=== PATIENT | female | born 1970 | race Caucasian/White ===

== ENCOUNTER 2017-03-03 10:16 | Inpatient (IN) | payer MEDICAID ==
--- NOTE | 2017-03-03 10:53 | ED Physician Documentation ---
PD HPI FOCAL NEURO - Stated complaint Stated Complaint: FACIAL NUMBNESS/FATIGUE - Chief complaint Chief Complaint: Neuro - History obtained from History obtained from: Patient - History of Present Illness Timing - onset: How many days ago (3) Timing - duration: Days (3) Timing - details: Still present Severity of deficit: Moderate Weakness: Face, Hand, Leg, Right Numbness: Face, Hand, Leg, Right Associated symptoms: No: Headache, Nausea / vomiting, Fall, Head injury, Chest pain, Fever Contributing factors: positive: Other (uncontrolled diabetes) Baseline status: positive: A&OX3, ambulatory, indep Similar symptoms before: Has not had sx before - Additional information Additional information: The patient is a 46-year-old female with a history of diabetes, who presents with right sided neurologic deficits of 3 days duration. She has felt fatigued , and has found herself having to hold on while walking because of weakness in her right lower extremity. She has felt decreased sensation on the right side of her face, and has been having difficulty holding onto objects with her right hand. She denies any traumatic injury, fever, or headache. She denies history of similar symptoms in the past. She has not been compliant with her insulin, after having been diagnosed with diabetes about 5 years ago. On further review of systems she denies chest pain, cough, shortness of breath. She denies abdominal pain, nausea or vomiting. She does report dysuria and urgency of urination. Review of Systems Constitutional: reports: Fatigue. denies: Fever Eyes: denies: Decreased vision Ears: denies: Tinnitus/ringing Nose: denies: Congestion Throat: denies: Sore throat Cardiac: denies: Chest pain / pressure, Palpitations Respiratory: denies: Dyspnea, Cough GI: denies: Abdominal Pain, Nausea, Vomiting : reports: Dysuria, Frequency Skin: denies: Rash Musculoskeletal: denies: Neck pain, Back pain, Extremity pain Neurologic: reports: Focal weakness, Numbness. denies: Altered mental status, Headache Endocrine: reports: Polyuria PD PAST MEDICAL HISTORY - Past Medical History Past Medical History: Yes Endocrine/Autoimmune: Type 2 diabetes - Allergies Allergies/Adverse Reactions: Allergies Allergy/AdvReac Type Severity Reaction Status Date / Time No Known Drug Allergies Allergy Verified 03/03/17 10:29 - Social History Does the pt smoke?: Yes Smoking Status: Current every day smoker Does the pt drink ETOH?: Yes PD ED PE NORMAL - Vitals Vital signs reviewed: Yes (Hypertensive and tachycardic.) - General General: Alert and oriented X 3, Well developed/nourished - HEENT HEENT: Atraumatic, PERRL, EOMI, Moist mucous membranes, Pharynx benign - Neck Neck: Supple, no meningeal sign, No adenopathy, No JVD - Cardiac Cardiac: No murmur, Other (Rapid rate, regular rhythm.) - Respiratory Respiratory: No respiratory distress, Clear bilaterally - Abdomen Abdomen: Soft, Non tender - Back Back: No CVA TTP - Derm Derm: No rash - Extremities Extremities: No edema, No calf tenderness / cord - Neuro Neuro: Alert and oriented X 3, Normal speech, Other (Decreased light touch sensation on the right face, upper extremity, and lower extremity. There is sparing of the forehead. Decreased strength involving the right upper and lower extremities. No pronator drift.) Eye Opening: Spontaneous Motor: Obeys Commands Verbal: Oriented GCS Score: 15 NIHSS - Time Time: 10:45 - Level of Consciousness Level of consciousness: (0) Alert, Keenly responsive LOC Questions: (0) Answers both Q's correct LOC Commands: (0) Performs both correctly - Gaze Best Gaze: (0) Normal - Visual Visual: (0) No loss - Facial Palsy Facial Palsy: (1) Minor paralysis - Motor Arms (both separate) Motor Arm (right): (0) No drift Motor Arm (left): (0) No drift - Motor Legs (both separate) Motor Leg (right): (0) No drift Motor Leg (left): (0) No drift - Limb Ataxia Limb Ataxia: (0) Absent - Sensory Sensory: (1) Qzhg-am-qqraeobw loss - Best Language Best Language: (0) No aphasia - Dysarthria Dysarthria: (0) Normal - Extinction and Inattention (formally neg Extinction and inattention: (0) No abnormality - Total Score/Results Total Score/Result: 2 Results - Vitals Vitals: Vital Signs - 24 hr 03/03/17 03/03/17 10:23 10:30 Temperature 36.3 C L Heart Rate 109 H 110 H Respiratory 16 18 Rate Blood Pressure 184/101 H 165/103 H O2 Saturation 99 100 Oxygen O2 Source Room air - EKG (time done) 10:42 Rate: Rate (enter#) (103) Rhythm: Sinus tachycardia [place]: Normal Intervals: Normal MA QRS: Normal Ischemia: Normal ST segments Computer interpretation: Agree with computer - Labs Labs: Laboratory Tests 03/03/17 03/03/17 03/03/17 10:26 10:30 10:30 WBC 9.7 RBC 5.69 H Hgb 16.4 H Hct 48.9 H MCV 85.9 MCH 28.7 MCHC 33.4 RDW 13.9 Plt Count 262 MPV 9.5 Neut # 6.4 Lymph # 2.6 [place] # 0.6 Eos # 0.1 Baso # 0.0 Absolute Nucleated RBC 0.01 Nucleated RBC % 0.1 PT 9.6 L INR 0.8 Sodium Potassium Chloride Carbon Dioxide Anion Gap BUN Creatinine Estimated GFR (MDRD) Glucose POC Whole Bld Glucose 443 H Glycated Hemoglobin Estim Average Glucose Calcium Magnesium Total Bilirubin AST ALT Alkaline Phosphatase Total Protein Albumin Globulin Albumin/Globulin Ratio Lipase HCG, Quant 03/03/17 03/03/17 03/03/17 10:30 10:30 10:30 WBC RBC Hgb Hct MCV MCH MCHC RDW Plt Count MPV Neut # Lymph # [place] # Eos # Baso # Absolute Nucleated RBC Nucleated RBC % PT INR Sodium 132 L Potassium 3.9 Chloride 98 L Carbon Dioxide 24 Anion Gap 10.0 BUN 12 Creatinine 0.8 Estimated GFR (MDRD) 77 L Glucose 427 H POC Whole Bld Glucose Glycated Hemoglobin 12.6 H Estim Average Glucose 315 H Calcium 9.2 Magnesium Total Bilirubin 0.5 AST 21 ALT 15 Alkaline Phosphatase 129 H Total Protein 8.1 Albumin 3.9 Globulin 4.2 Albumin/Globulin Ratio 0.9 L Lipase 78 H HCG, Quant < 0.60 03/03/17 10:30 WBC RBC Hgb Hct MCV MCH MCHC RDW Plt Count MPV Neut # Lymph # [place] # Eos # Baso # Absolute Nucleated RBC Nucleated RBC % PT INR Sodium Potassium Chloride Carbon Dioxide Anion Gap BUN Creatinine Estimated GFR (MDRD) Glucose POC Whole Bld Glucose Glycated Hemoglobin Estim Average Glucose Calcium Magnesium 2.2 Total Bilirubin AST ALT Alkaline Phosphatase Total Protein Albumin Globulin Albumin/Globulin Ratio Lipase HCG, Quant - Rads (name of study) Head CT w/o Radiology: Prelim report reviewed, EMP read contemporaneously, See rad report ( There is an area of subtle asymmetry of hypodensity involving the posterior limb of the left internal capsule which may reflect a small area of subacute cerebral infarction. This can be further evaluated with MRI of the brain without contrast as deemed clinically appropriate. There is no evidence of overt hemorrhagic transformation within this area of suspected subacute cerebral infarction. Other etiologies which can produce a similar appearance would include an area of chronic small vessel ischemia. Recommend correlation with clinical symptoms.) PD MEDICAL DECISION MAKING - ED course Complexity details: reviewed results, re-evaluated patient, considered differential, d/w patient, d/w family, d/w reporting consultant ED course: The patient's presentation is most consistent with a subacute lacunar infarct, with right sided neurologic deficits. CT scan of the brain does not reveal any evidence of intracranial hemorrhage. She has a history of noncompliance with her diabetes, and has not been taking insulin for more than 1 year, and was sporadic with her insulin when she did take it. She is hyperglycemic today with a blood sugar of 447, without evidence of ketoacidosis. Treatment in the emergency department included administration of normal saline 1 L IV, insulin 10 units of regular subcutaneously, and 4 baby aspirin orally. I discussed her condition with the neurologist at [facility], and he recommends that the patient can be admitted to [facility] for further evaluation and treatment by the hospitalist here. I discussed her condition with Dr. Park, who will admit her for further evaluation and treatment. Departure - Departure Disposition: 66 [facility] DC/Xfer Clinical Impression: Cerebrovascular accident (CVA) Qualifiers: CVA mechanism: unspecified Qualified Code(s): I63.9 - Cerebral infarction, unspecified Diabetes mellitus with hyperglycemia Qualifiers: Diabetes mellitus type: type 2 Diabetes mellitus terminal manager insulin use: without senior care use Qualified Code(s): E11.65 - Type 2 diabetes mellitus with hyperglycemia Condition: Stable Discharge Date/Time: 03/03/17 12:27
[2017-03-03 10:56] LABS: BASOPHILS % (AUTO) 0.4 %; EOSINOPHILS # (AUTO) 0.1 10^3/uL (0.0-0.7); HGB - HEMOGLOBIN 16.4 g/dL (12.0-16.0); LYMPHOCYTES # (AUTO) 2.6 10^3/uL (1.5-3.5); LYMPHOCYTES % (AUTO) 26.8 %; MEAN CORPUSCULAR HEMOGLOBIN 28.7 pg (27.0-31.0); MEAN CORPUSCULAR HGB CONC 33.4 g/dL (32.0-36.0); MEAN CORPUSCULAR VOLUME 85.9 fL (81.0-99.0); MEAN PLATELET VOLUME 9.5 fL (7.9-10.8); MONOCYTES # (AUTO) 0.6 10^3/uL (0.0-1.0); MONOCYTES % (AUTO) 5.7 %; NEUTROPHILS # (AUTO) 6.4 10^3/uL (1.5-6.6); NEUTROPHILS % (AUTO) 66.1 %; PLT - PLATELET COUNT 262 10^3/uL (130-450); RED BLOOD COUNT 5.69 10^6/uL (4.20-5.40); RED CELL DISTRIBUTION WIDTH 13.9 % (12.0-15.0); WHITE BLOOD COUNT 9.7 x10^3/uL (4.8-10.8)
--- NOTE | 2017-03-03 11:11 | CT Preliminary Report ---
Exam: CT HEAD W/O Impression: 1. There is an area of subtle asymmetry of hypodensity involving the posterior limb of the left inter nal capsule which may reflect a small area of subacute cerebral infarction. This can be further evalu ated with MRI of the brain without contrast as deemed clinically appropriate. There is no evidence of overt hemorrhagic transformation within this area of suspected subacute cerebral infarction. Other e tiologies which can produce a similar appearance would include an area of chronic small vessel ischem ia. Recommend correlation with clinical symptoms. The critical result notification system was initiated by Dr. Curt Patino at 11:07 hrs on 03/03/17. The above critical findings were discussed with Dr. Ty Nichols by Dr. Curt Patino at 11:10 hrs on 03/03/17. SITE ID: [id number]
[2017-03-03] MEDS ORDERED: ASPIRIN CHEW 81 MG TABLET PO STA (11:14)
[2017-03-03 11:16] LABS: ALBUMIN 3.9 g/dL (3.2-5.5); ALBUMIN/GLOBULIN RATIO 0.9 (1.0-2.2); BILIRUBIN,TOTAL 0.5 mg/dL (0.2-1.0); CALCIUM 9.2 mg/dL (8.5-10.3); CREATININE 0.8 mg/dL (0.4-1.0); TOTAL PROTEIN 8.1 g/dL (6.7-8.2)
[2017-03-03 11:20] LABS: INR 0.8 (0.8-1.2); PT - PROTHROMBIN TIME 9.6 secs (9.9-12.6)
[2017-03-03] MEDS ORDERED: INSULIN REGULAR HUMAN 100 UNIT/1 ML 10 ML MDV SUBQ STA (11:26)
[2017-03-03] MEDS ORDERED: SODIUM CHLORIDE 0.9% 1,000 ML IV ONE (11:26)
--- NOTE | 2017-03-03 11:38 | CT Report ---
EXAM: CT HEAD EXAM DATE: 03/03/2017 10:58 AM. CLINICAL HISTORY: Right-sided neuro deficits past three days. COMPARISON: None. TECHNIQUE: Multiaxial CT images were obtained from the foramen magnum to the vertex. Reformats: Coron al. IV contrast: None. In accordance with CT protocol optimization, one or more of the following dose reduction techniques w ere utilized for this exam: automated exposure control, adjustment of mA and/or KV based on patient s ize, or use of iterative reconstructive technique. FINDINGS: There is an old fracture of the left orbital floor. Recommend correlation with history. The imaged po rtions of the paranasal sinuses are normally aerated. The bilateral mastoid air cells are normally ae rated. There is no acute fracture of the calvaria. The imaged portions of the orbits are normal in appearance. There is an area of subtle asymmetric hypodensity involving the posterior limb of the left internal c apsule which may reflect an area of subacute cerebral infarction. This may potentially produce right- sided deficits. Further characterization can be obtained with MRI of the brain without contrast as de emed clinically appropriate. There is no evidence of overt hemorrhagic transformation within the susp ected area of cerebral infarction. Cerebral volume and ventricular size are normal. IMPRESSION: 1. There is an area of subtle asymmetry of hypodensity involving the posterior limb of the left inter nal capsule which may reflect a small area of subacute cerebral infarction. This can be further evalu ated with MRI of the brain without contrast as deemed clinically appropriate. There is no evidence of overt hemorrhagic transformation within this area of suspected subacute cerebral infarction. Other e tiologies which can produce a similar appearance would include an area of chronic small vessel ischem ia. Recommend correlation with clinical symptoms. The critical result notification system was initiated by Dr. Curt Patino at 11:07 hrs on 03/03/17. The above critical findings were discussed with Dr. Ty Nichols by Dr. Curt Patino at 11:10 hrs on 03/03/17. Referring Provider Line: [phone] SITE ID: [id number]
[2017-03-03] MEDS ORDERED: SODIUM CHLORIDE FLUSH 0.9% 10 ML SYRINGE IVP PRN (11:48)
[2017-03-03] MEDS ORDERED: PROCHLORPERAZINE 10 MG/2 ML VIAL IVP PRN (11:48)
[2017-03-03 12:37] LABS: HB2 TOTAL 17.9 g/dL; HEMOGLOBIN A1C 2.05 g/dL; HEMOGLOBIN A1C % 12.6 % (4.6-6.2)
[2017-03-03] MEDS: NS W/20 MEQ KCL 1,000 ML IV SCH (13:43)
[2017-03-03] MEDS: SODIUM CHLORIDE FLUSH 0.9% 10 ML SYRINGE IVP SCH ×2 (13:44→20:07)
[2017-03-03 15:33] LABS: BILIRUBIN,URINE NEGATIVE (NEGATIVE); GLUCOSE, URINE (UA) >=1000 mg/dL (NEGATIVE); KETONES,URINE (UA) NEGATIVE (NEGATIVE); LEUKOCYTE ESTERASE, URINE NEGATIVE (NEGATIVE); MUDS CUTOFF CONCENTRATIONS CUTOFF CONC BELOW:; NITRITE,URINE NEGATIVE (NEGATIVE); OCCULT BLOOD,URINE NEGATIVE (NEGATIVE); PROTEIN,URINE NEGATIVE (NEGATIVE); UROBILINOGEN,URINE 0.2 (NORMAL) E.U./dL (NORMAL)
[2017-03-03 15:35] LABS: CLARITY,URINE CLEAR (CLEAR)
[2017-03-03 15:46] LABS: AMPHETAMINE SCREEN,URINE POSITIVE (NEGATIVE); BENZODIAZEPINES SCREEN, URINE NEGATIVE (NEGATIVE); COCAINE SCREEN URINE NEGATIVE (NEGATIVE); METHADONE SCREEN, URINE NEGATIVE (NEGATIVE); METHAMPHETAMINES SCREEN, URINE POSITIVE (NEGATIVE); OPIATE SCREEN, URINE NEGATIVE (NEGATIVE); OXYCODONE SCREEN, URINE NEGATIVE (NEGATIVE); PROPOXYPHENE SCREEN, URINE NEGATIVE (NEGATIVE); TRICYCLIC ANTIDEPRESSANT,URINE NEGATIVE (NEGATIVE)
--- NOTE | 2017-03-03 16:52 | Ultrasound Preliminary Report ---
Exam: US CAROTID DOPPLER COMPLETE IMPRESSION: No hemodynamically significant stenoses. Validated velocity measurements with angiographic measurements and velocity criteria are extrapolated from diameter data as defined by the Society of Radiologists in Ultrasound Consensus Conference Radi ology 2003; 229;340-346. RADIA SITE ID: [id number]
[2017-03-03] MEDS ORDERED: INSULIN ASPART 300 UNIT/3 ML PEN SUBQ SCH (17:00)
--- NOTE | 2017-03-03 17:01 | Ultrasound Report ---
EXAM: CAROTID DOPPLER ULTRASOUND EXAM DATE: 03/03/2017 03:40 PM. CLINICAL HISTORY: Right side neurologic deficit for 3 days. Right lower extremity weakness. COMPARISON: None. TECHNIQUE: Real-time sonographic vascular imaging was performed by the roll cutter through the [employer] arterial system with a linear transducer utilizing color-flow, Doppler flow and spectral analysis. Multiple dealer compliance representative static images were saved for review. FINDINGS: RIGHT: RCCA Prox: PSV 74 cm/sec. RCCA Dist: PSV 65 cm/sec, EDV 20 cm/sec. RECA: PSV 129 cm/sec. R Bulb: PSV 57 cm/sec, EDV 21 cm/sec, ICA/CCA ratio 0.88. CASE Prox: PSV 51 cm/sec, EDV 20 cm/sec, ICA/CCA ratio 0.78. CASE Mid: PSV 109 cm/sec, EDV 46 cm/sec, ICA/CCA ratio 1.68. CASE Dist: PSV 79 cm/sec, EDV 33 cm/sec, ICA/CCA ratio 1.22. RVA: PSV 31 cm/sec. RVA flow direction: Antegrade. LEFT: LCCA Prox: PSV 77 cm/sec. LCCA Dist: PSV 66 cm/sec, EDV 25 cm/sec. LECA: PSV 97 cm/sec. L Bulb: PSV 92 cm/sec, EDV 43 cm/sec, ICA/CCA ratio 1.39. LICA Prox: PSV 89 cm/sec, EDV 32 cm/sec, ICA/CCA ratio 1.35. LICA Mid: PSV 65 cm/sec, EDV 29 cm/sec, ICA/CCA ratio 0.98 LICA Dist: PSV 32 cm/sec, EDV 15 cm/sec, ICA/CCA ratio 0.48. LVA: PSV 38 cm/sec. LVA flow direction: Antegrade. Other: Mild soft plaquing at the bifurcations. IMPRESSION: No hemodynamically significant stenoses. Validated velocity measurements with angiographic measurements and velocity criteria are extrapolated from diameter data as defined by the Society of Radiologists in Ultrasound Consensus Conference Radi ology 2003; 229;340-346. RADIA Referring Provider Line: [phone] SITE ID: [id number]
[2017-03-03] MEDS: ACETAMINOPHEN 325 MG TABLET PO PRN (17:30)
[2017-03-03] MEDS: NICOTINE 14 MG PATCH TOP SCH (17:30)
[2017-03-03] MEDS ORDERED: ATORVASTATIN 40 MG TABLET PO SCH (21:00)
[2017-03-03] MEDS: INSULIN ASPART 300 UNIT/3 ML PEN SUBQ SCH (21:08)
[2017-03-03] MEDS ORDERED: GABAPENTIN 100 MG CAPSULE PO SCH (22:00)
[2017-03-04 00:34] LABS: BUN - BLOOD UREA NITROGEN 10 mg/dL (6-20); CALCIUM 8.5 mg/dL (8.5-10.3); CARBON DIOXIDE - CO2 23 mmol/L (21-32); CHLORIDE 102 mmol/L (101-111); CHOL/HDL RATIO 3.2 (<4.4); CHOLESTEROL 136 mg/dL; CREATININE 0.5 mg/dL (0.4-1.0); GFR - MDRD 132 (>89); GLUCOSE 259 mg/dL (70-100); HDL CHOLESTEROL 42 mg/dL; LDL CHOLESTEROL,CALCULATED 51 mg/dL; LDL/HDL RATIO 1.2 (<4.4); SODIUM 133 mmol/L (135-145); VLDL CHOLESTEROL 43 mg/dL
[2017-03-04] MEDS: NS W/20 MEQ KCL 1,000 ML IV SCH ×2 (01:09→15:48)
[2017-03-04] MEDS: SODIUM CHLORIDE FLUSH 0.9% 10 ML SYRINGE IVP SCH ×2 (06:46→13:01)
[2017-03-04] MEDS ORDERED: ASPIRIN 325 MG TABLET PO SCH (08:00)
[2017-03-04] MEDS: INSULIN ASPART 300 UNIT/3 ML PEN SUBQ SCH ×2 (08:09→12:16)
[2017-03-04] MEDS: ACETAMINOPHEN 325 MG TABLET PO PRN (08:20)
--- NOTE | 2017-03-04 08:42 | HISTORY & PHYSICAL EXAMINATION ---
DATE OF SERVICE: 03/03/2017 Physician: Melinda Mayer MD HISTORY OF PRESENT ILLNESS: This is a 46-year-old white female with a history of diabetes, diagnosed 5 years ago. She admits to being on metformin and insulin minimally over those 5 years. Patient has no other past medical history and is taking no medications. Patient presents with a 3-day history of right facial numbness, right arm clumsiness and dropping things, and right leg weakness and abnormal gait. After approximately 2 days of this continuous symptom, she herself thought that maybe she was having a stroke and eventually came to the emergency room and has had workup begun and is in fact being diagnosed with a completed subacute stroke. PAST MEDICAL HISTORY: Diabetes, noncompliant with oral or insulin management for diabetes. ALLERGIES: NONE. MEDICATIONS AT HOME: None. FAMILY HISTORY: Cardiac disease on both sides of the family and no other family history. SOCIAL HISTORY: Patient smokes 1/2 to 1 pack a day, drinks alcohol socially; she states she was a heavy alcoholic until 16 years ago when she had her first child. Patient states she has some marijuana smoking use, nightly before bed, and denies any other drug use (despite having positive urine tox screen). REVIEW OF SYSTEMS: The patient reports that for about a year, she has pain and numbness in the plantar aspect of both feet, mostly in the heels ,which subsides after she arises in the morning and walks around. It is mostly a problem at night. She has never taken medications for this. A comprehensive review of systems was done, and only the pertinent positives are as above in the HPI and here. PHYSICAL EXAMINATION GENERAL: A white female in no distress, supine in bed. VITAL SIGNS: Blood pressure 150/90, heart rate 80, in sinus rhythm, afebrile. HEENT: Unremarkable with moist oral mucosa. NECK: No JVD. No carotid bruits are heard. No thyromegaly. No lymphadenopathy. CHEST: Clear. HEART: Heart sounds normal. No audible murmur. No heave or gallop. ABDOMEN: Soft. Positive bowel sounds. EXTREMITIES: No clubbing, cyanosis, or edema. NEUROLOGIC: Exam showed abnormal sensation to light touch of the right cheek area compared to the left, 4+ strength of the right hand international flight attendant compared to the left, but equal motor strength of both lower extremities. LABORATORY/DATA Sodium 132, potassium 3.9, BUN 12, creatinine 0.8. Glucose 427. HbA1c 12.6 giving an estimated average daily glucose of 315, magnesium 2.2, alkaline phosphatase 129, normal AST and ALT. One troponin was less than 0.04. Lipase 78. No amylase was done. HCG negative. INR normal. White blood count and differential normal. Hemoglobin 16.4 with an MCV of 85, platelet count normal. Urine showed pH of 1.02, high glucose, negative leukocyte esterase, negative ketones. The blood toxicology was positive for amphetamines and methamphetamine. EKG normal sinus rhythm, within normal limits. There was no chest x-ray done. Head CT showed a subacute infarct of the left internal capsule. IMPRESSION/DIAGNOSES 1. Subacute stroke with CT abnormality that is consistent with her neurologic deficits. 2. Diabetes with poor control, noncompliance. 3. Possible methamphetamine abuse. 4. Possible hypertension, not treated. 5. Current smoker. PLAN 1. Admit the patient to Telemetry and rule out atrial fibrillation as a source of the stroke. Obtain an echo to rule out a cardiac embolus. Obtain a carotid Doppler to evaluate for stenoses. Repeat brain imaging with a brain MRI, but also brain and neck MRA for closer evaluation of vasculature. 2. Start the patient on daily aspirin. Obtain a lipid panel and start the patient on a statin medication. 3. Begin sliding scale insulin coverage and a diabetic diet. The patient needs diabetic teaching. She needs followup for diabetes management, which she now agrees to do. 4. Begin transderm Nicoderm patch for nicotine urges. Deep venous thrombosis prophylaxis: SCDs. CODE STATUS: FULL CODE. ATTESTATION: It is expected that the patient will be discharged or transferred within 96 hours: Yes. TIME REQUIRED FOR COMPLETING THIS ENTIRE ADMISSION: 45 minutes. TD: 03/03/2017 20:25 ROBYN
[2017-03-04] MEDS ORDERED: POLYETHYLENE GLYCOL 3350 17 GM PACKET PO SCH (09:00)
[2017-03-04] MEDS ORDERED: ENOXAPARIN 40 MG/0.4 ML SYRINGE SUBQ SCH (09:00)
[2017-03-04] MEDS ORDERED: FAMOTIDINE 20 MG TABLET PO SCH (09:00)
[2017-03-04] MEDS ORDERED: GADOBUTROL 10 MMOL/10 ML VIAL ONE (09:11)
[2017-03-04] MEDS ORDERED: GADOBUTROL 10 MMOL/10 ML VIAL IVP ONE (11:55)
--- NOTE | 2017-03-04 12:43 | MRI Preliminary Report ---
Exam: MRI ANGIO NECK W/WO (MRA) IMPRESSION: 1. Negative neck MRA. No hemodynamically significant stenoses. 2. Mild, less than 50%, stenosis is seen at the origin of the left ICA. RADIA SITE ID: [id number]
--- NOTE | 2017-03-04 12:43 | MRI Preliminary Report ---
Exam: MRI ANGIO BRAIN W/O (MRA) IMPRESSION: 1.Moderate, 50%, stenosis noted at the junction of the cavernous and supracavernous ICA bilaterally. 2. Otherwise unremarkable MRA of the intracranial circulation. No aneurysm. RADIA SITE ID: [id number]
--- NOTE | 2017-03-04 12:43 | MRI Preliminary Report ---
Exam: MRI BRAIN W/O IMPRESSION: 1.Acute infarct in the lateral left thalamus and junction with the posterior limb of the internal cap rubi. Imaging is consistent with 1-7 days in age. No associated hemorrhage. 2. Punctate focus of subcortical white matter T2 and FLAIR bright signal in the right posterior front al operculum. This is nonspecific. This can be seen in patients with migraine headaches or secondary to small vessel ischemic change. RADIA SITE ID: [id number]
--- NOTE | 2017-03-04 13:07 | MRI Report ---
EXAM MRA BRAIN EXAM DATE: 03/04/2017 11:26 AM. CLINICAL HISTORY: CVA. Right-sided tingling. COMPARISON: MRI of the brain 03/04/2017. MRA of the neck 03/04/2017. CT scan of the head 03/03/2017. TECHNIQUE: Multiplanar, multisequence MRA sequences of the brain were performed. Other: None. Post-pr ocessing: Multiplanar 3D MIP reconstructions. IV Contrast: None. FINDINGS: RIGHT Internal Carotid (ICA): Moderate, 50%, stenosis is seen at the junction of the cavernous and supracav ernous ICA. Otherwise, intracranial ICA is unremarkable. No aneurysm. Middle Cerebral (MCA): No aneurysm, stenosis or anomaly. Anterior Cerebral (AANIS): No aneurysm, stenosis or anomaly. Posterior Cerebral (HOME HEALTH RN): No aneurysm, stenosis or anomaly. Posterior Communicating (P-COM): Not visualized. Vertebral: No aneurysm, stenosis or anomaly in the visualized upper vertebral artery. LEFT Internal Carotid (ICA): Moderate, 50%, stenosis is seen at the junction of the cavernous and supracav ernous ICA. Otherwise, intracranial ICA is unremarkable. No aneurysm. Middle Cerebral (MCA): No aneurysm, stenosis or anomaly. Anterior Cerebral (ANAIS): No aneurysm, stenosis or anomaly. Posterior Cerebral (HOME HEALTH RN): No aneurysm, stenosis or anomaly. Posterior Communicating (P-COM): No aneurysm, stenosis or anomaly. Vertebral: No aneurysm, stenosis or anomaly in the visualized upper vertebral artery. MIDLINE Anterior Communicating (A-COM): No aneurysm, stenosis or anomaly. Small in caliber. Basilar Artery:No aneurysm, stenosis or anomaly. Other: None. IMPRESSION: 1.Moderate, 50%, stenosis noted at the junction of the cavernous and supracavernous ICA bilaterally. 2. Otherwise unremarkable MRA of the intracranial circulation. No aneurysm. RAD[facility] Referring Provider Line: [phone] SITE ID: [id number]
--- NOTE | 2017-03-04 13:08 | MRI Report ---
EXAM: MR ANGIOGRAM NECK EXAM DATE: 03/04/2017 12:10 PM. CLINICAL HISTORY: CVA. Right-sided tingling. COMPARISON: MRI and MRA of the head 03/04/2017. TECHNIQUE: Multiplanar, multisequence MRA sequences of the neck were performed. Other: None. Post-pro cessing: Multiplanar 3D MIP reconstructions. IV Contrast: 9 mL Gadavist. Evaluation of arterial sten osis is based on a NASCET method of measurement. FINDINGS: The visualized aortic arch is unremarkable. Normal three-vessel branching is noted. The great vessels off the arch are patent. RIGHT Common Carotid: Patent. No dissection or significant stenosis. Internal Carotid: Patent. No dissection or significant stenosis. External Carotid: Patent. No dissection or significant stenosis. Vertebral: Patent. No dissection or significant stenosis. LEFT Common Carotid: Patent. No dissection or significant stenosis. Internal Carotid: Patent. No dissection or significant stenosis. Mild, less than 50%, stenosis is see n at the origin of the ICA. External Carotid: Patent. No dissection or significant stenosis. Vertebral: Patent. No dissection or significant stenosis. Intracranial Circulation: No stenoses or aneurysms in the visualized portion of the intracranial vasc ulature. (Please see report of MRA of the brain performed at the same time). Other: The soft tissues, bones, and lung apices are unremarkable. IMPRESSION: 1. Negative neck MRA. No hemodynamically significant stenoses. 2. Mild, less than 50%, stenosis is seen at the origin of the left ICA. RADIA Referring Provider Line: [phone] SITE ID: [id number]
--- NOTE | 2017-03-04 13:08 | MRI Report ---
EXAM: MRI BRAIN WITHOUT CONTRAST EXAM DATE: 03/04/2017 11:57 AM. CLINICAL HISTORY: CVA. Right-sided tingling. COMPARISON: MRA of the head and neck 03/04/2017. CT scan of the head 03/03/2017. TECHNIQUE: Multiplanar, multisequence T1-weighted and fluid-sensitive MR sequences of the brain were performed. Sequences optimized for routine evaluation. Other: None. IV Contrast: None. FINDINGS: Brain Volume: Normal for age. Parenchyma/Dura: An oval 10 x 14 x 5 mm focus of signal abnormality is seen in the left lateral thala mus at the junction with the posterior limb of the internal capsule. This demonstrates restricted dif fusion with decreased T1 and increased T2/FLAIR signal. An oval 3.5 mm focus of subcortical white matter T2 and FLAIR bright signal is seen in the right infe rior perirolandic region. The remainder of crow matter and white matter signal is unremarkable. No in tracranial mass or hemorrhage. Ventricles/Cisterns: No hydrocephalus. No abnormal extra-axial fluid collection or hemorrhage. Orbits: Symmetric and unremarkable. Sella Turcica: The pituitary gland, cavernous sinuses, suprasellar cistern and optic chiasm are unrem arkable. IAC: Symmetric and unremarkable. Vasculature: Normal signal flow void is seen in the major arterial structures at the skull base. Sinuses: No acute appearing sinus disease. Bones: No focal pathologic appearing marrow signal changes. Other: None. IMPRESSION: 1.Acute infarct in the lateral left thalamus and junction with the posterior limb of the internal cap rubi. Imaging is consistent with 1-7 days in age. No associated hemorrhage. 2. Punctate focus of subcortical white matter T2 and FLAIR bright signal in the right posterior front al operculum. This is nonspecific. This can be seen in patients with migraine headaches or secondary to small vessel ischemic change. [facility] Referring Provider Line: [phone] SITE ID: [id number]
[2017-03-04 15:35] VITALS: BP 132/80
[2017-03-04] MEDS: NICOTINE 14 MG PATCH TOP SCH (16:32)
--- NOTE | 2017-03-04 16:35 | Ultrasound Preliminary Report ---
Exam: US ANKLE BRACHIAL INDEX IMPRESSION: Abnormal bilateral ABIs, 0.63 on the right, 0.53 on the left. [facility] SITE ID: [id number]
--- NOTE | 2017-03-04 16:48 | Ultrasound Report ---
EXAM: BILATERAL LOWER EXTREMITY ARTERIAL DOPPLER ULTRASOUND WITH ABIs EXAM DATE: 03/04/2017 04:07 PM. CLINICAL HISTORY: Bilateral foot pain when supine. Diabetic. COMPARISON: None. TECHNIQUE: Real-time sonographic vascular imaging was performed by the concrete building assembler, utilizing color-f low, Doppler flow, and spectral analysis. Multiple inside sales account representative static images were saved for review . FINDINGS: Right Lower Extremity: TRAVEL REGISTERED NURSE PACU: PSV 31 cm/sec, monophasic waveform. DPA: PSV 8 cm/sec, monophasic waveform. Right Systolic Pressures: Brachial artery: 132/80 Posterior tibial artery: 85/57 Ankle/brachial Index: 0.63 Left Lower Extremity: TRAVEL REGISTERED NURSE PACU: PSV 11 cm/sec, monophasic waveform. DPA: PSV 12 cm/sec, monophasic waveform. Left Systolic Pressures: Brachial artery 135/77 Posterior tibial artery: 71/54 Ankle/Brachial Index: 0.53 IMPRESSION: Abnormal bilateral ABIs, 0.63 on the right, 0.53 on the left. [facility] Referring Provider Line: [phone] SITE ID: [id number]
[2017-03-04] MEDS ORDERED: INSULIN ASPART 300 UNIT/3 ML PEN SUBQ SCH (17:00)
--- NOTE | 2017-03-04 18:01 | Discharge Plan ---
Discharge Plan Disposition: Home, Self Care Condition: Stable Prescriptions: Aspirin [Nabeel] 325 mg PO DAILYWM #30 tablet Blood Sugar Diagnostic [Glucometer Strips] 1 each ACHS #100 strip Blood-Glucose Meter [Glucometer] 1 each ACHS #1 each Cilostazol [Pletal] 100 mg PO BID #60 tablet Insulin Aspart [NovoLOG] 3 - 11 unit SUBQ 0800,1200,1700,2100 #1 pen Insulin Glargine [Lantus Solostar] 20 unit SQ BID #1 pen Lancets [Blood Lancets] 1 each ACHS #100 each Nicotine 14 mg Patch [Nicoderm] 1 patch TOP Q24H #21 patch Diet: Diabetic Activity Restrictions: Activity as Tolerated Shower Restrictions: No Driving Restrictions: Yes (rajni Ley cleared to drive by PCP) Weight Bearing: Full Weight Instruction Topics: Stroke Sx, Stroke Taking Meds, Eat Healthy, Blood Sugar Check, Insulin Injected, Insulin Types, Diabetes Healthy Meals, Diabetes Carbs, Diabetes Eating Out, Diabetes Keep Feet Healthy, Peripheral Artery Disease Additional Instructions or Follow Up instructions: Please eat a Diabetic (Carb-controlled) diet Start taking: Long acting Insulin Short acting Insulin, doses based on fingerstick glucose level Aspirin, adult dose, 1 tablet daily for life Pletal tablets Use the Nicoderm Patch to help you permanently STOP smoking See your PCP for follow up regarding Diabetes and Stroke and PVD (Peripheral Vascular Disease) Have your cholesterol checked in 1-2 months by your provider, to determine if any medications beyond glucose medications are needed for you You can have follow-up here at the [facility] if you wish Begin Physical Therapy and Occupational Therapy Rehab post-stroke at the facility of your choice Follow-Up Care: Outpatient Rehab - PT, Outpatient Rehab - OT No Smoking: If you smoke, Please STOP! Call for help. Follow-up with: Cesilia Burns ARNP [Primary Care Provider] -
--- NOTE | 2017-03-30 05:56 | DISCHARGE SUMMARY ---
DATE OF SERVICE: 03/04/2017 Physician: Melinda Mayer MD DATE OF ADMISSION: 03/03/2017 DATE OF DISCHARGE: 03/04/2017 HISTORY OF PRESENT ILLNESS: This is a 46-year-old, white female with a history of diabetes diagnosed 5 years ago and she admits to noncompliance, taking nearly no metformin or insulin over the past 5 years. She is on no medications whatsoever. The patient presented with a 3-day history of right facial numbness, right arm clumsiness, and right leg weakness with abnormal gait and, over the last 2 days, these were continuous symptoms. She presented to the emergency room where CT of the head revealed a subacute stroke. She was placed in observation for further evaluation and to initiate PT, as well as treatment of diabetes. HOSPITAL COURSE AND DISCHARGE DIAGNOSES 1. Subacute stroke/PVD. The patient's arm weakness improved only minimally, her leg complaint and facial numbness persisted. The patient underwent an echocardiogram and this showed normal LV function, EF of 60%, no intracardiac clot, no intracardiac shunt. The patient also had multiple imaging studies to rule out a source of embolism or other atherosclerosis. She had a carotid Doppler that showed no hemodynamically significant stenoses. She had a brain MRA and MRI, and neck MRA. These studies showed moderate 50% stenosis at the junction of the cavernous and super cavernous ICA bilaterally. Otherwise, an unremarkable MRA of the intracranial circulation and no aneurysm. Acute infarct in the lateral left thalamus and junction with the posterior limb of the internal capsule which is consistent with a stroke of 1-7 days in age, and no associated hemorrhage. A punctate focus of subcortical white matter signal was seen , which could be consistent with migraine headaches or small vessel ischemic changes. A mild (less than 50%) stenosis at the origin of the left ICA. Because the patient described pain in the dorsum of her feet when legs are elevated, there was concern for atherosclerotic disease of the legs in a diabetic who had poor glu control, so an ALVERTO was done that showed abnormal bilateral ABIs: 0.63 on the right and 0.53 on the left. The patient was started on aspirin and advised to take this daily for life. She was also put on cilostazol for her peripheral vascular disease. The patient underwent lipid studies that showed a total cholesterol of 136, LDL of 51, triglycerides of 215. She was not started on triglyceride controlling agents yet, as her glucose control would be a first priority, and that control alone may decrease her triglycerides. She was advised to start outpatient rehab with physical therapy and occupational therapy, and a prescription order was provided for her to begin these. 2. Diabetes, poorly controlled. The patient's blood sugars ran in the mid 200 range. Her HbA1c was 12.6, indicating very poor control. The patient was seen by a diabetic electric stove mechanic and had teaching started regarding diet as well as medications, and fingerstick management. She was discharged on new prescriptions for her diabetes and advised to have followup in the diabetic clinic here or with her PCP. 3. Hypertension. The patient's blood pressure on presentation was 151/82. She was advised to have outpatient followup regarding blood pressure management. But on the second day without antihypertensive meds, her blood pressure was in the range of 125/ 86, 118/79. LABS AND IMAGING: Reviewed and summarized above. ALLERGIES: NONE. MEDICATIONS AT DISCHARGE These were all new: 1. Aspirin 325 mg daily. 2. Blood sugar fingerstick lancets. 3. Blood glucose monitoring with a glucometer. 4. Blood sugar fingerstick strips. 5. Pletal (Cilostazol) 100 mg p.o. b.i.d. 6. Aspart insulin pen, using a sliding scale for coverage. 7. Lantus insulin 20 units subcutaneous b.i.d. 8. Nicoderm patch topically daily for a 2-week course. CONDITION AT DISCHARGE: Stable. PHYSICAL EXAMINATION AT DISCHARGE VITAL SIGNS: Blood pressure 132/80, heart rate 74 in sinus rhythm, afebrile, room air saturation 97 percent. HEENT: Unremarkable except for right facial numbness. NECK: Without JVD or carotid bruits. CHEST: Clear. HEART: Sounds normal. ABDOMEN: Soft. Normal bowel sounds, nontender. EXTREMITIES: Without edema. NEUROLOGIC: She had mild weakness of the right arm and the right leg. FOLLOWUP: PCP and recommend outpatient OT and PT, and recommend diabetic clinic here. CODE STATUS: FULL CODE. TIME REQUIRED TO COMPLETE THIS ENTIRE DISCHARGE: 45 minutes. TD: 03/30/2017 06:55 [facility]
== END 2017-03-04 19:06 | disposition home or self-care (01) | DRG 65 ==
LOC: ED 10:16 → MS2 11:48
PROVIDERS: ADMIT Internal Medicine; ATTEND Internal Medicine
DX: I63.50 Cerebral infarction due to unspecified occlusion or stenosis of unspecified cerebral artery (principal); G81.91 Hemiplegia, unspecified affecting right dominant side; R20.0 Anesthesia of skin; R29.702 NIHSS score 2; E11.65 Type 2 diabetes mellitus with hyperglycemia; E11.51 Type 2 diabetes mellitus with diabetic peripheral angiopathy without gangrene; T38.3X6A Underdosing of insulin and oral hypoglycemic [antidiabetic] drugs, initial encounter; I10 Essential (primary) hypertension; F17.210 Nicotine dependence, cigarettes, uncomplicated
CPT/HCPCS: 36415; 70450; 70544; 70549; 70551; 80048; 80053; 80061; 80306; 81001; 81003; 83036; 83690; 83721; 83735; 84484; 84702; 85025; 85610; 87086; 87640; 93005; 93306; 93880; 93922; 96360; 99284; 99285

== ENCOUNTER 2018-02-17 12:11 | Observation (INO) | payer MEDICAID ==
--- NOTE | 2018-02-17 12:34 | ED Physician Documentation ---
PD HPI FOCAL NEURO - Stated complaint Stated Complaint: STROKE LIKE SYMPTOMS - Chief complaint Chief Complaint: Neuro - History obtained from History obtained from: Patient - History of Present Illness Timing - onset: Yesterday Timing - duration: Hours (about 13 hours) Timing - details: Still present Time of symptom onset unknown: Time of onset unknown (Between 11:00 PM and midnight last night.) Severity of deficit: Mild Numbness: Face, Arm, Hand Baseline status: positive: A&OX3, ambulatory, indep Similar symptoms before: Diagnosis (History of CVA with right-sided neuro deficits one year ago.) - Additional information Additional information: The patient is a 47-year-old female with history of insulin-dependent diabetes and peripheral vascular disease, and with CVA 1 year ago, who presents with numbness and tingling in her right upper extremity and face. Her symptoms started last night, about 13 hours prior to arrival. The tingling and slightly decreased sensation has continued since that time. She denies weakness. She denies headache, fever, chest pain, nausea or vomiting. She was hospitalized 1 year ago with right-sided neurologic deficit, associated with CVA. She was also diagnosed with peripheral vascular disease at that time. Her right sided neuro deficits have gradually improved over the past year. She takes one aspirin daily, and took a full aspirin earlier today. Review of Systems Constitutional: denies: Fever Eyes: denies: Decreased vision Ears: denies: Tinnitus/ringing Nose: denies: Congestion Throat: denies: Sore throat Cardiac: denies: Chest pain / pressure, Palpitations Respiratory: denies: Dyspnea, Cough GI: denies: Abdominal Pain, Nausea, Vomiting : reports: LMP (2 weeks ago.). denies: Dysuria Skin: denies: Rash Musculoskeletal: denies: Back pain Neurologic: reports: Numbness (right face and upper extremity.). 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 - Present Medications Home Medications: Ambulatory Orders Medication Instructions Recorded Confirmed Aspirin [Nabeel] 325 mg PO DAILYWM #30 tablet 03/04/17 02/17/18 Insulin Aspart [NovoLOG] 3 - 11 unit SUBQ 03/04/17 02/17/18 0800,1200,1700,2100 #1 pen Insulin Glargine [Lantus Solostar] 20 unit SQ BID #1 pen 03/04/17 02/17/18 Ascorbic Acid [Vitamin C] 1,000 mg PO DAILY 02/17/18 02/17/18 Berberine 500 mg PO DAILY 02/17/18 02/17/18 Cholecalciferol [Vitamin D3] 5,000 unit PO DAILY 02/17/18 02/17/18 Vitamin B Complex 1 each PO DAILY 02/17/18 02/17/18 - Allergies Allergies/Adverse Reactions: Allergies Allergy/AdvReac Type Severity Reaction Status Date / Time No Known Drug Allergies Allergy Verified 02/17/18 12:22 - Social History Does the pt smoke?: Yes Smoking Status: Current every day smoker Does the pt drink ETOH?: Yes Does the pt have substance abuse?: No - Immunizations Immunizations are current?: Yes PD ED PE NORMAL - Vitals Vital signs reviewed: Yes (Initially hypertensive) - General General: Alert and oriented X 3, Well developed/nourished - HEENT HEENT: Atraumatic, Pharynx benign - Neck Neck: Supple, no meningeal sign, No adenopathy, No JVD - Cardiac Cardiac: RRR - Respiratory Respiratory: No respiratory distress, Clear bilaterally - Abdomen Abdomen: Soft, Non tender, Other (Rotund abdomen) - Back Back: No CVA TTP - Derm Derm: No rash - Extremities Extremities: No edema, No calf tenderness / cord - Neuro Neuro: Alert and oriented X 3, No motor deficit, Normal speech, Other (Barely perceptable decreased right light touch sensation compared to left, on face, right upper extremity, as well as right lower extremity.) Eye Opening: Spontaneous Motor: Obeys Commands Verbal: Oriented GCS Score: 15 NIHSS - Level of Consciousness Level of consciousness: (0) Alert, Keenly responsive LOC Questions: (0) Answers both Q's correct LOC Commands: (0) Performs both correctly - Gaze Best Gaze: (0) Normal - Visual Visual: (0) No loss - Facial Palsy Facial Palsy: (0) Normal, symmetrical movement - Motor Arms (both separate) Motor Arm (right): (0) No drift Motor Arm (left): (0) No drift - Motor Legs (both separate) Motor Leg (right): (0) No drift Motor Leg (left): (0) No drift - Limb Ataxia Limb Ataxia: (0) Absent - Sensory Sensory: (1) [id number] loss - Best Language Best Language: (0) No aphasia - Dysarthria Dysarthria: (0) Normal - Extinction and Inattention (formally neg Extinction and inattention: (0) No abnormality - Total Score/Results Total Score/Result: 1 Results - Vitals Vitals: Vital Signs - 24 hr 02/17/18 02/17/18 02/17/18 12:17 13:00 14:00 Temperature 36.6 C Heart Rate 109 H 87 88 Respiratory 16 15 12 Rate Blood Pressure 180/109 H 133/80 H 112/70 O2 Saturation 100 97 100 Oxygen O2 Source [Without Activity] Room air O2 Source Room air - EKG (time done) 12:21 Rate: Rate (enter#) (97) Rhythm: NSR Fowler: Normal Intervals: Normal ND QRS: Normal Ischemia: Normal ST segments Computer interpretation: Agree with computer - Labs Labs: Laboratory Tests 02/17/18 02/17/18 02/17/18 12:20 12:35 12:35 WBC 8.2 RBC 5.03 Hgb 14.2 Hct 42.3 MCV 84.1 MCH 28.3 MCHC 33.7 RDW 13.6 Plt Count 273 MPV 8.7 Neut # (Auto) 5.3 Lymph # (Auto) 2.2 [place] # (Auto) 0.6 Eos # (Auto) 0.1 Baso # (Auto) 0.0 Absolute Nucleated RBC 0.01 Nucleated RBC % 0.1 PT 11.0 INR 1.0 Sodium Potassium Chloride Carbon Dioxide Anion Gap BUN Creatinine Estimated GFR (MDRD) Glucose POC Whole Bld Glucose 214 H Calcium Total Bilirubin AST ALT Alkaline Phosphatase Troponin I Total Protein Albumin Globulin Albumin/Globulin Ratio Lipase Urine Color Urine Clarity Urine pH Ur Specific [place] Urine Protein Urine Glucose (UA) Urine Ketones Urine Occult Blood Urine Nitrite Urine Bilirubin Urine Urobilinogen Ur Leukocyte Esterase Ur Microscopic Review Urine Culture Comments Urine Opiates Screen Ur Oxycodone Screen Urine Methadone Screen Ur Propoxyphene Screen Ur Barbiturates Screen Ur Tricyclics Screen Ur Phencyclidine Scrn Ur Amphetamine Screen U Methamphetamines Scrn U Benzodiazepines Scrn Urine Cocaine Screen U Cannabinoids Screen 02/17/18 02/17/18 02/17/18 12:35 12:35 13:34 WBC RBC Hgb Hct MCV MCH MCHC RDW Plt Count MPV Neut # (Auto) Lymph # (Auto) [place] # (Auto) Eos # (Auto) Baso # (Auto) Absolute Nucleated RBC Nucleated RBC % PT INR Sodium 134 L Potassium 3.6 Chloride 99 L Carbon Dioxide 26 Anion Gap 9.0 BUN 13 Creatinine 0.8 Estimated GFR (MDRD) 76 L Glucose 205 H POC Whole Bld Glucose Calcium 9.1 Total Bilirubin 0.6 AST 26 ALT 22 Alkaline Phosphatase 101 Troponin I < 0.04 Total Protein 7.5 Albumin 3.9 Globulin 3.6 Albumin/Globulin Ratio 1.1 Lipase 94 H Urine Color DARK YELLOW Urine Clarity CLEAR Urine pH 5.5 Ur Specific [place] >=1.030 H Urine Protein NEGATIVE Urine Glucose (UA) 100 H Urine Ketones NEGATIVE Urine Occult Blood NEGATIVE Urine Nitrite NEGATIVE Urine Bilirubin NEGATIVE Urine Urobilinogen 0.2 (NORMAL) Ur Leukocyte Esterase NEGATIVE Ur Microscopic Review NOT INDICATED Urine Culture Comments NOT INDICATED Urine Opiates Screen Ur Oxycodone Screen Urine Methadone Screen Ur Propoxyphene Screen Ur Barbiturates Screen Ur Tricyclics Screen Ur Phencyclidine Scrn Ur Amphetamine Screen U Methamphetamines Scrn U Benzodiazepines Scrn Urine Cocaine Screen U Cannabinoids Screen 02/17/18 13:34 WBC RBC Hgb Hct MCV MCH MCHC RDW Plt Count MPV Neut # (Auto) Lymph # (Auto) [place] # (Auto) Eos # (Auto) Baso # (Auto) Absolute Nucleated RBC Nucleated RBC % PT INR Sodium Potassium Chloride Carbon Dioxide Anion Gap BUN Creatinine Estimated GFR (MDRD) Glucose POC Whole Bld Glucose Calcium Total Bilirubin AST ALT Alkaline Phosphatase Troponin I Total Protein Albumin Globulin Albumin/Globulin Ratio Lipase Urine Color Urine Clarity Urine pH Ur Specific [place] Urine Protein Urine Glucose (UA) Urine Ketones Urine Occult Blood Urine Nitrite Urine Bilirubin Urine Urobilinogen Ur Leukocyte Esterase Ur Microscopic Review Urine Culture Comments Urine Opiates Screen NEGATIVE Ur Oxycodone Screen NEGATIVE Urine Methadone Screen NEGATIVE Ur Propoxyphene Screen NEGATIVE Ur Barbiturates Screen NEGATIVE Ur Tricyclics Screen NEGATIVE Ur Phencyclidine Scrn NEGATIVE Ur Amphetamine Screen POSITIVE H U Methamphetamines Scrn POSITIVE H U Benzodiazepines Scrn NEGATIVE Urine Cocaine Screen POSITIVE H U Cannabinoids Screen POSITIVE H - Rads (name of study) Head CT w/o Radiology: Prelim report reviewed, EMP read contemporaneously, See rad report (No acute intracranial abnormality is detected.) PD MEDICAL DECISION MAKING - ED course Complexity details: reviewed old records, reviewed results, re-evaluated patient, considered differential, d/w patient, d/w [facility] consultant ED course: The patient's presentation is significant for paresthesia of the right face and extremities, starting about 13 hours prior to arrival. There is no associated motor deficit. Head CT without contrast reveals no acute intracranial abnormality. Chemistry panel reveals hyperglycemia with a glucose of 205. Electrolytes are unremarkable. I discussed her condition with Dr. Henry, the hospitalist, who accepts her for further evaluation and treatment. No specific treatment was initiated in the emergency department. The patient had already taken aspirin earlier today. Departure - Departure Disposition: ED Place in Observation Clinical Impression: Paresthesia Diabetes mellitus with hyperglycemia Qualifiers: Diabetes mellitus type: type 2 Diabetes mellitus custodial insulin use: with custodial use Qualified Code(s): E11.65 - Type 2 diabetes mellitus with hyperglycemia Condition: Stable Discharge Date/Time: 02/17/18 15:53
[2018-02-17 12:42] LABS: BASOPHILS % (AUTO) 0.4 %; EOSINOPHILS # (AUTO) 0.1 10^3/uL (0.0-0.7); EOSINOPHILS % (AUTO) 1.3 %; HGB - HEMOGLOBIN 14.2 g/dL (12.0-16.0); LYMPHOCYTES # (AUTO) 2.2 10^3/uL (1.5-3.5); LYMPHOCYTES % (AUTO) 26.8 %; MEAN CORPUSCULAR HEMOGLOBIN 28.3 pg (27.0-31.0); MEAN CORPUSCULAR HGB CONC 33.7 g/dL (32.0-36.0); MEAN CORPUSCULAR VOLUME 84.1 fL (81.0-99.0); MEAN PLATELET VOLUME 8.7 fL (7.9-10.8); MONOCYTES # (AUTO) 0.6 10^3/uL (0.0-1.0); MONOCYTES % (AUTO) 7.1 %; NEUTROPHILS # (AUTO) 5.3 10^3/uL (1.5-6.6); NEUTROPHILS % (AUTO) 64.4 %; PLT - PLATELET COUNT 273 10^3/uL (130-450); RED BLOOD COUNT 5.03 10^6/uL (4.20-5.40); RED CELL DISTRIBUTION WIDTH 13.6 % (12.0-15.0); WHITE BLOOD COUNT 8.2 x10^3/uL (4.8-10.8)
[2018-02-17 12:52] LABS: ALBUMIN 3.9 g/dL (3.2-5.5); ALBUMIN/GLOBULIN RATIO 1.1 (1.0-2.2); BILIRUBIN,TOTAL 0.6 mg/dL (0.2-1.0); CALCIUM 9.1 mg/dL (8.5-10.3); CREATININE 0.8 mg/dL (0.4-1.0); TOTAL PROTEIN 7.5 g/dL (6.7-8.2)
--- NOTE | 2018-02-17 13:01 | CT Report ---
Reason: right sided neuro deficits Procedure Date: 02/17/2018 Accession Number: [id number] / [id number] Procedure: CT - Head W/O CPT Code: FULL RESULT: EXAM: CT HEAD EXAM DATE: 02/17/2018 12:43 PM. CLINICAL HISTORY: Right-sided neuro deficits. COMPARISON: HEAD W/O 03/03/2017 10:58 AM. TECHNIQUE: Multiaxial CT images were obtained from the foramen magnum to the vertex. Reformats: Sagittal and coronal. IV contrast: None. In accordance with CT protocol optimization, one or more of the following dose reduction techniques were utilized for this exam: automated exposure control, adjustment of mA and/or KV based on patient size, or use of iterative reconstructive technique. FINDINGS: Parenchyma: No intraparenchymal hemorrhage. No evidence of mass, midline shift, or CT findings of infarction. [place]-white differentiation is distinct. Extraaxial Spaces: Normal for age. No subdural or epidural collections identified. Ventricles: Normal in size and position. Sinuses and Orbits: Imaged paranasal sinuses, orbits, and mastoids show no significant abnormality. Bones: No evidence of fracture or calvarial defect. Other: None. IMPRESSION: No acute intracranial abnormality is detected. [facility]
[2018-02-17 13:42] LABS: BILIRUBIN,URINE NEGATIVE (NEGATIVE); GLUCOSE, URINE (UA) 100 mg/dL (NEGATIVE); KETONES,URINE (UA) NEGATIVE (NEGATIVE); LEUKOCYTE ESTERASE, URINE NEGATIVE (NEGATIVE); NITRITE,URINE NEGATIVE (NEGATIVE); OCCULT BLOOD,URINE NEGATIVE (NEGATIVE); PH,URINE 5.5 PH (5.0-7.5); PROTEIN,URINE NEGATIVE (NEGATIVE); UROBILINOGEN,URINE 0.2 (NORMAL) E.U./dL (NORMAL)
[2018-02-17 13:46] LABS: CLARITY,URINE CLEAR (CLEAR)
[2018-02-17] MEDS ORDERED: ONDANSETRON ODT 4 MG TABLET TL PRN (14:16)
[2018-02-17] MEDS ORDERED: ONDANSETRON 4 MG/2 ML VIAL IVP PRN (14:16)
[2018-02-17] MEDS ORDERED: ACETAMINOPHEN 325 MG TABLET PO PRN (14:16)
[2018-02-17] MEDS ORDERED: SODIUM CHLORIDE FLUSH 0.9% 10 ML SYRINGE IVP PRN (14:16)
[2018-02-17] MEDS ORDERED: ATORVASTATIN 40 MG TABLET PO ONE (14:21)
[2018-02-17] MEDS ORDERED: CLOPIDOGREL 75 MG TABLET PO STA (14:21)
--- NOTE | 2018-02-17 14:23 | HISTORY & PHYSICAL EXAMINATION ---
Chief Complaint - Chief Complaint Chief Complaint: Right body paresthesias starting in face History of Present Illness - Admitted From Admitted From:: Home/ER - History Obtained From Records Reviewed: [facility] History obtained from: Dr. Nichols and patient Exam Limitations: None - History of Present Illness HPI Comment/Other: She is a 47-year-old female who has diabetes that was diagnosed when she was 41, and has been noncompliant with her medical treatment plan in the past. She also has intermittent methamphetamine use. She presented in February 2017 with right-sided facial numbness, right arm clumsiness and dropping things. With that evaluation she was found to have a infarct in the lateral left thalamus and junction with the posterior limb of the internal capsule. She had nonspecific right posterior frontal operculum subcortical white matter disease. MRA of the brain at that time had less than 50% stenosis at the origin of the left internal carotid artery and moderate 50% stenosis at the junction of the cavernous and supra cavernous ICA bilaterally. She was not placed on a statin. And she was put on Pletal. At that time her glycosylated hemoglobin was 12.6 and she was strongly encouraged to be in better control of her insulin. She was also smoking and NicoDerm patch was applied. Although she was methamphetamine positive, it was not mentioned in her discharge what recommendations there were for that. Starting at 11:00 last night, 13 hours before getting to the ER, she began having numbness and tingling in her right face, right upper arm and chest. Later on the numbness and tingling started involving right leg as well. No weakness, no falls, no blurred vision, no nausea or vomiting. No headache. Although her med list has Pletal on it, she says she is only taking an aspirin. On physical examination there is a barely perceptible decrease in right light touch sensation on the right face, right upper extremity and right lower extremity in comparison to the left. But no motor losses. Blood pressure was initially 180/109 and was 112/70 by the time the emergency room doctor called me. Her initial glucose was 214. Troponin is negative. And head CT is without intracranial abnormality. With regards to management of the risk factors for recurrent stroke, she does methamphetamines on a daily basis. Has done so for decades. She smokes it. Her A1c is probably over 8%. She is not sure but she knows that her glucose is usually above 200. I am now being asked to place her under observation for TIA versus stroke. History - Past Medical History Cardiovascular: reports: Peripheral Vascular Disease (Of legs for which she uses Pletal) Respiratory: reports: None Neuro: reports: CVA Endocrine/Autoimmune: reports: Type 2 diabetes GI: reports: Chronic constipation AUTO HAULER: reports: Other () : reports: None HEENT: reports: None Psych: reports: None Musculoskeletal: reports: None Derm: reports: None MRSA Hx?: No - Past Surgical History Ortho: reports: Other /AUTO HAULER: reports: section - Family & Social History Family History Comment/Other: Both mother and father, that are , are 20 years older than her. That puts it at 69 years of age. Dad has high blood pressure but no other medical problems. Mom is also healthy. She has a sister. She has had bilateral mastectomies for breast cancer in his survived it by 5 years. 2 daughters, one is severely autistic and lives in a fpc in [facility] and the other 17-year-old lives with her dad and stepmom Living arrangement: At home Living Situation: Alone Social History Notes: She was [place] and [place] in [place]. 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 She currently lives rent free in an apartment on her parents property. And return for the red free living she takes care of her stepmother's sister, her aunt who is disabled. She does methamphetamines on a daily basis. She says she does it for "energy" and a bad habit. She started using methamphetamines when she first got , and blames her for getting her addicted. She denies any use of heroin, LSD, and does occasional cannabis. She was a heavy, heavy drinker. Never had withdrawals or seizures. Stopped drinking about 18-19 years ago when her first daughter was conceived. She started smoking at the age of 11 and smokes 5-10 cigarettes a day.She currently lives alone. She is still sexually active. - Substance History Abuse: Recurrent use of substance despite neg consequences: Amphetamine, Other (Tobacco) Abuse Issues: Other (Stroke, risk of heart attack increased risk of peripheral vascular disease) Dependence: Experiences withdrawal or developed tolerances: NONE - POLST Patient has POLST: No POLST Status: Full Code (She has never thought about it. She says that she really could not answer one way or the other at this time about life support. So at this time, by default, she is a full code. I have asked her to think about that for the future especially because of her risk of [place], stroke, and deterioration from her comorbidities.) Meds/Allgy - Home Medications Home Medications: Ambulatory Orders Medication Instructions Recorded Confirmed Aspirin [Nabeel] 325 mg PO DAILYWM #30 tablet 03/04/17 Insulin Aspart [NovoLOG] 3 - 11 unit SUBQ 03/04/17 0800,1200,1700,2100 #1 pen Insulin Glargine [Lantus Solostar] 20 unit SQ BID #1 pen 03/04/17 Ascorbic Acid [Vitamin C] 1,000 mg PO DAILY 02/17/18 02/17/18 Berberine 500 mg PO DAILY 02/17/18 02/17/18 Cholecalciferol [Vitamin D3] 5,000 unit PO DAILY 02/17/18 02/17/18 Vitamin B Complex 1 each PO DAILY 02/17/18 02/17/18 - Allergies Allergies/Adverse Reactions: Allergies Allergy/AdvReac Type Severity Reaction Status Date / Time No Known Drug Allergies Allergy Verified 02/17/18 12:22 Review of Systems - Constitutional Constitutional: reports: Fatigue (Always). denies: Fever, Chills, Weakness, Poor appetite, Diaphoresis - Eyes Eyes: reports: Blurred vision (Only when her glucose is high). denies: Pain, Irritation, Amaurosis, Vision loss, Dipolpia - Ears, Nose & Throat Ears, Nose & Throat: denies: Ear pain, Hearing loss, Hearing aids, Tinnitus, Nasal congestion, Postnasal drainage, Sore throat, Hoarseness - Cardiovascular Cariovascular: denies: Irregular heart rate, Palpitations, Chest pain, Edema, Li ghtheadedness, Syncope, Exertional dyspnea, Orthopnea - Respiratory Respiratory: denies: Cough, Sputum production, Wheezing, Snoring, SOB at rest, SOB with exertion, Apnea - Gastrointestinal Gastrointestinal: reports: Constipation. denies: Abdominal pain, Abdominal distention, Diarrhea, Change in bowel habits, Rectal bleeding - Genitourinary Genitourinary: denies: Dysuria, Frequency, Urgency, Incontinence, Flank pain, Nocturia - Musculoskeletal Musculoskeletal: reports: Muscle pain, Muscle aches. denies: Back pain, Stiffness, Gout, Joint pain - Integumentary Integumentary: denies: Rash, Pruritis, Lesions, Dryness - Neurological Neurological: denies: General weakness, Focal weakness, Headache, Dizziness, Memory problems, Pre-existing deficit - Psychiatric Psychiatric: reports: Depression. denies: Anxiety, Suicidal, Delusions, Hallucinations - Endocrine Endocrine: reports: Other (She checks her glucose twice a day for the most part. Glucose, however, is consistently above 200 and matter what she does). denies: Polyuria, Polydypsia, Polyphagia Prior Level of Functionality: She is independent in her own apartment on her parents property. She is able to drive a car. She cleans her own house. 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 She does not use any durable medical equipment Exam - Vital Signs Reviewed Vital Signs: Yes Vital Signs: Vital Signs x48h Temp Pulse Resp BP Pulse Ox 02/17/18 14:00 88 12 112/70 100 02/17/18 13:00 87 15 133/80 H 97 02/17/18 12:17 36.6 C 109 H 16 180/109 H 100 - Physical Exam General Appearance: positive: No acute distress, Alert, Other (Mildly overweight 5 foot 5 inch white female who looks stated age, well-nourished well-developed) Eyes Bilateral: positive: PERRL, EOMI ENT: positive: Pharynx nml Neck: positive: No JVD. negative: Stiff neck, Carotid bruit Respiratory: positive: Chest non-tender. negative: Wheezes, Rales, Rhonchi Cardiovascular: positive: Regular rate & rhythm. negative: Systolic murmur, Gallop/S4, Friction rub Peripheral Pulses: positive: 1+ Abdomen: positive: Non-tender, No organomegaly, Nml bowel sounds, No distention Skin: positive: Warm, Dry. negative: Pallor, Skin rash Extremities: positive: Non-tender, Full ROM, No pedal edema Neurologic/Psychiatric: positive: Oriented x3, CN's nml (2-12), Motor nml. negative: Sensation nml (Loss of pinprick and light touch sensation that is denser at the right foot coming up the leg and gradually gets better by the time we get up to face but she still has loss of sensation in comparison to the left side), Facial droop, Slurred/abnml speech, Depressed mood/affect Reflexes: Bicep (R): 1+, Bicep (L): 1+, Knee (R): 1+, Knee (L): 1+, Ankle (R): 0, Ankle (L): 0 Babinski Reflex: Right: Down, Left: Down Conclusion/Plan - Problem List (1) Paresthesia of right arm and leg Conclusion/Plan: This is in the same distribution as her previous lacunar infarct. This is an unfortunate female who has diabetes mellitus. She may be having small microvessel infarcts. She also has hx of use of metamphetmines and she smokes. She is beyond the timeframe where she would be a candidate for acute intervention. Plan: I have spoken to tele-neurology stroke at [facility]. They are the tele-stroke consultants we are contracted with. Continue a repeat workup with MRI of the head, MRA of brain and MRA of neck. Do dual platelet therapy with aspirin and Plavix. He is puzzled by the use of Pletal. Do dual therapy for 3 weeks, and in 3 weeks drop the aspirin and continue on the Plavix, permissive hypertension up to 180 systolic and 100 diastolic Previous methamphetamines tox screen positive, repeat tox screen Previous A1c was very elevated, recheck A1c Start a statin regardless of her cholesterol and triglyceride levels counselled to stop smoking. Long 40 minute conversation explaining the pathophysiology of vascular injury from DM, smoking and speed, and how the 3 combine to increase her risk of recurrent stroke, [place], kidney disease, PVD with ulcer, osteo, amputation. (2) Type II diabetes mellitus with neurological manifestations, uncontrolled Conclusion/Plan: She will be n.p.o. temporarily while she gets the MRI and MRA. Plan: Resume Lantus 20 units subcu before meals twice daily Low-dose sliding scale insulin for coverage Check A1c (3) HTN (hypertension) Conclusion/Plan: Allow for permissive hypertension of a systolic greater than or up to 180, and a diastolic up to 100. Monitor blood pressure every 4-6 hours. Treat as needed. Qualifiers: Hypertension type: essential hypertension Qualified Code(s): I10 - Essential (primary) hypertension (4) Methamphetamine abuse Conclusion/Plan: She states that she uses the same amount every day. There is been no escalation over time. So I do not believe she is tolerant or addicted at this time. But she is never stopped, we do not know if she will ever go through withdrawal. Counseling given to the patient with regards to pathophysiology of the use of amphetamines, and counseled to stop - Lab Results Fish Bones: 02/17/18 12:35 02/17/18 12:35 - Diagnostic Imaging Results Diagnostic Imaging Results: positive: Final report reviewed Diagnostic Imaging Results Comments: CT HEAD EXAM DATE: 02/17/2018 12:43 PM. CLINICAL HISTORY: Right-sided neuro deficits. COMPARISON: HEAD W/O 03/03/2017 10:58 AM. TECHNIQUE: Multiaxial CT images were obtained from the foramen magnum to the vertex. Reformats: Sagittal and coronal. IV contrast: None. In accordance with CT protocol optimization, one or more of the following dose reduction techniques were utilized for this exam: automated exposure control, adjustment of mA and/or KV based on patient size, or use of iterative reconstructive technique. FINDINGS: Parenchyma: No intraparenchymal hemorrhage. No evidence of mass, midline shift, or CT findings of infarction. [place]-white differentiation is distinct. Extraaxial Spaces: Normal for age. No subdural or epidural collections identified. Ventricles: Normal in size and position. Sinuses and Orbits: Imaged paranasal sinuses, orbits, and mastoids show no significant abnormality. Bones: No evidence of fracture or calvarial defect. Other: None. IMPRESSION: No acute intracranial abnormality is detected. Echocardiogram March 03, 2017 showed a sigmoid shaped septum with focal hypertrophy of the basal septum. Remaining wall thickness normal. No significant left ventricular outflow tract obstruction. Ejection fraction 60- 65%. Right ventricle normal size and function. Contrast injection of agitated saline negative for atrial shunt. No significantly valvular heart disease. - EKG Results EKG Interpreted Independently: No EKG Comparison: Unchanged from prior EKG EKG Findings: Normal sinus rhythm. [place] normal. No ST changes. Normal EKG. Core Measures - Anticipated LOS I expect patient to be DC'd or transferred within 96 hours.: Yes - DVT/VTE - Prophylaxis VTE/DVT Device ordered at admit?: Yes
[2018-02-17 15:12] LABS: MUDS CUTOFF CONCENTRATIONS CUTOFF CONC BELOW:
[2018-02-17 15:36] LABS: AMPHETAMINE SCREEN,URINE POSITIVE (NEGATIVE); BENZODIAZEPINES SCREEN, URINE NEGATIVE (NEGATIVE); COCAINE SCREEN URINE POSITIVE (NEGATIVE); METHADONE SCREEN, URINE NEGATIVE (NEGATIVE); METHAMPHETAMINES SCREEN, URINE POSITIVE (NEGATIVE); OPIATE SCREEN, URINE NEGATIVE (NEGATIVE); OXYCODONE SCREEN, URINE NEGATIVE (NEGATIVE); PROPOXYPHENE SCREEN, URINE NEGATIVE (NEGATIVE); TRICYCLIC ANTIDEPRESSANT,URINE NEGATIVE (NEGATIVE)
--- NOTE | 2018-02-17 16:56 | MRI Report ---
Reason: hx of lacunar infarct, now w parestheia (R) Procedure Date: 02/17/2018 Accession Number: [id number] / [id number] Procedure: MRI - Angio Neck W/O (MRA) CPT Code: FULL RESULT: EXAM: MR ANGIOGRAM NECK WITHOUT CONTRAST EXAM DATE: 02/17/2018 04:19 PM. CLINICAL HISTORY: 47-year-old female. Hx of lacunar infarct, now w parestheia (R). COMPARISON: MRA head obtained currently TECHNIQUE: Multiplanar, multisequence MRA sequences of the neck were performed. Other: None. Post-processing: Multiplanar 3D MIP reconstructions. IV Contrast: None. Evaluation of arterial stenosis is based on a NASCET method of measurement. FINDINGS: This is a somewhat limited noncontrast MRA evaluation of the arteries of the neck. RIGHT Common Carotid: The origin not well seen. Patent. No dissection or significant stenosis. Internal Carotid: Patent. No dissection or significant stenosis. External Carotid: Patent. No dissection or significant stenosis. Vertebral: The origin not well seen. Patent. No dissection or significant stenosis. LEFT Common Carotid: The origin not well seen. Patent. No dissection or significant stenosis. Internal Carotid: Patent. No dissection or significant stenosis. External Carotid: Patent. No dissection or significant stenosis. Vertebral: The origin not well seen. Patent. No dissection or significant stenosis. Intracranial Circulation: Concurrently obtained MRA head is dictated separately. Other: The soft tissues, bones, and lung apices are unremarkable. IMPRESSION: 1. Somewhat limited noncontrast MRA evaluation of the arteries of the neck. This may represent the reason why the origins of the vertebral arteries bilaterally and the origins of the common carotid arteries bilaterally are not well seen. Given this limitation, the visualized extracranial arteries are unremarkable with no evidence of hemodynamically significant stenosis, large vessel occlusion, acute dissection, aneurysm, or vascular malformation. RADIA
--- NOTE | 2018-02-17 16:56 | MRI Report ---
Reason: (R) paresthesia, hx of lacunar infarct Procedure Date: 02/17/2018 Accession Number: [id number] / [id number] Procedure: MRI - Brain W/O CPT Code: FULL RESULT: EXAMS: MRI BRAIN WITHOUT CONTRAST. MRA BRAIN WITHOUT CONTRAST. EXAM DATE: 02/17/2018 04:19 PM. CLINICAL HISTORY: 47-year-old with history of lacunar infarct presenting with new right-sided body paresthesias. Evaluate for intracranial pathology or vascular pathology. COMPARISON: CT head 02/17/2018; MR brain 03/04/2017; MRA head 03/04/2018. TECHNIQUE: MRI: Multiplanar, multisequence T1-weighted and fluid-sensitive MRI sequences of the brain were performed. Sequences optimized for routine evaluation. Other: None. Post-processing: None. IV Contrast: None. MRA: Multiplanar, multisequence T1-weighted and fluid-sensitive MRA sequences of the brain were performed. Other: None. Post-processing: Multiplanar 3D MIP reconstructions. IV Contrast: None. FINDINGS: MRI: Brain Volume: Normal for age. Parenchyma/Dura: No acute parenchymal hemorrhage, mass, or midline shift. Small-volume encephalomalacia of the left basal ganglia in a region of prior infarct. Additional mild white matter changes seen similar to 03/04/2017. No areas of restricted diffusion seen to suggest acute infarct. No abnormal areas of hemosiderin deposition. Ventricles/Cisterns: No hydrocephalus. No abnormal extra-axial fluid collection or hemorrhage. Orbits: Symmetric and unremarkable. Sella Turcica: The pituitary gland, cavernous sinuses, suprasellar cistern and optic chiasm are unremarkable. IAC: Symmetric and unremarkable. Vasculature: Normal signal flow void is seen in the major arterial structures at the skull base. Sinuses: No acute appearing sinus disease. Bones: No focal pathologic appearing marrow signal changes. Other: None. MRA: RIGHT Internal Carotid (ICA): Again demonstrated is moderate 50% stenosis at the junction of the cavernous and supraclinoid right ICA similar to MR 03/04/2017. Middle Cerebral (MCA): No aneurysm, stenosis or anomaly. Anterior Cerebral (ANAIS): No aneurysm, stenosis or anomaly. Posterior Cerebral (EXPERIMENTAL DISPLAY BUILDER): No aneurysm, stenosis or anomaly. Posterior Communicating (P-COM): Not definitively seen. Vertebral: No aneurysm, stenosis or anomaly in the visualized upper vertebral artery. LEFT Internal Carotid (ICA): Again demonstrated is moderate 50% stenosis at the junction of the cavernous and supraclinoid left ICA similar to MR 03/04/2017 Middle Cerebral (MCA): No aneurysm, stenosis or anomaly. Anterior Cerebral (ANAIS): No aneurysm, stenosis or anomaly. Posterior Cerebral (EXPERIMENTAL DISPLAY BUILDER): No aneurysm, stenosis or anomaly. Posterior Communicating (P-COM): No aneurysm, stenosis or anomaly. Vertebral: No aneurysm, stenosis or anomaly in the visualized upper vertebral artery. MIDLINE Anterior Communicating (A-COM): No aneurysm, stenosis or anomaly. Basilar artery: No aneurysm, stenosis or anomaly. Other: None. IMPRESSION: MRI HEAD: 1.No definite acute intracranial pathology seen; specifically, no acute infarct, acute intracranial hemorrhage, mass, hydrocephalus, or midline shift. 2. Small-volume encephalomalacia involving the left basal ganglia in a region of prior infarct seen on MR 03/04/2017. 3. Additional mild white matter changes seen that appear similar to prior study and while nonspecific, may represent sequelae of chronic small vessel ischemic disease. MRA HEAD: 1.No large vessel occlusion. 2. Again demonstrated is moderate 50% stenosis at the junction of the cavernous and supraclinoid ICAs bilaterally, similar to MR 03/04/2017. 3. No definite aneurysm seen. RADIA
--- NOTE | 2018-02-17 16:56 | MRI Report ---
Reason: new right body paresthesia, hx of lacunar infarct Procedure Date: 02/17/2018 Accession Number: [id number] / [id number] Procedure: MRI - Angio Brain W/O (MRA) CPT Code: FULL RESULT: EXAMS: MRI BRAIN WITHOUT CONTRAST. MRA BRAIN WITHOUT CONTRAST. EXAM DATE: 02/17/2018 04:19 PM. CLINICAL HISTORY: 47-year-old with history of lacunar infarct presenting with new right-sided body paresthesias. Evaluate for intracranial pathology or vascular pathology. COMPARISON: CT head 02/17/2018; MR brain 03/04/2017; MRA head 03/04/2018. TECHNIQUE: MRI: Multiplanar, multisequence T1-weighted and fluid-sensitive MRI sequences of the brain were performed. Sequences optimized for routine evaluation. Other: None. Post-processing: None. IV Contrast: None. MRA: Multiplanar, multisequence T1-weighted and fluid-sensitive MRA sequences of the brain were performed. Other: None. Post-processing: Multiplanar 3D MIP reconstructions. IV Contrast: None. FINDINGS: MRI: Brain Volume: Normal for age. Parenchyma/Dura: No acute parenchymal hemorrhage, mass, or midline shift. Small-volume encephalomalacia of the left basal ganglia in a region of prior infarct. Additional mild white matter changes seen similar to 03/04/2017. No areas of restricted diffusion seen to suggest acute infarct. No abnormal areas of hemosiderin deposition. Ventricles/Cisterns: No hydrocephalus. No abnormal extra-axial fluid collection or hemorrhage. Orbits: Symmetric and unremarkable. Sella Turcica: The pituitary gland, cavernous sinuses, suprasellar cistern and optic chiasm are unremarkable. IAC: Symmetric and unremarkable. Vasculature: Normal signal flow void is seen in the major arterial structures at the skull base. Sinuses: No acute appearing sinus disease. Bones: No focal pathologic appearing marrow signal changes. Other: None. MRA: RIGHT Internal Carotid (ICA): Again demonstrated is moderate 50% stenosis at the junction of the cavernous and supraclinoid right ICA similar to MR 03/04/2017. Middle Cerebral (MCA): No aneurysm, stenosis or anomaly. Anterior Cerebral (ANAIS): No aneurysm, stenosis or anomaly. Posterior Cerebral (BOBBIN PRESSER): No aneurysm, stenosis or anomaly. Posterior Communicating (P-COM): Not definitively seen. Vertebral: No aneurysm, stenosis or anomaly in the visualized upper vertebral artery. LEFT Internal Carotid (ICA): Again demonstrated is moderate 50% stenosis at the junction of the cavernous and supraclinoid left ICA similar to MR 03/04/2017 Middle Cerebral (MCA): No aneurysm, stenosis or anomaly. Anterior Cerebral (ANAIS): No aneurysm, stenosis or anomaly. Posterior Cerebral (BOBBIN PRESSER): No aneurysm, stenosis or anomaly. Posterior Communicating (P-COM): No aneurysm, stenosis or anomaly. Vertebral: No aneurysm, stenosis or anomaly in the visualized upper vertebral artery. MIDLINE Anterior Communicating (A-COM): No aneurysm, stenosis or anomaly. Basilar artery: No aneurysm, stenosis or anomaly. Other: None. IMPRESSION: MRI HEAD: 1.No definite acute intracranial pathology seen; specifically, no acute infarct, acute intracranial hemorrhage, mass, hydrocephalus, or midline shift. 2. Small-volume encephalomalacia involving the left basal ganglia in a region of prior infarct seen on MR 03/04/2017. 3. Additional mild white matter changes seen that appear similar to prior study and while nonspecific, may represent sequelae of chronic small vessel ischemic disease. MRA HEAD: 1.No large vessel occlusion. 2. Again demonstrated is moderate 50% stenosis at the junction of the cavernous and supraclinoid ICAs bilaterally, similar to MR 03/04/2017. 3. No definite aneurysm seen. RADIA
[2018-02-17] MEDS: INSULIN GLARGINE 300 UNIT/3 ML PEN SUBQ SCH (17:47)
[2018-02-17] MEDS ORDERED: INSULIN REGULAR HUMAN 100 UNIT/1 ML 10 ML MDV SUBQ SCH (18:00)
[2018-02-17] MEDS: SODIUM CHLORIDE FLUSH 0.9% 10 ML SYRINGE IVP SCH (19:43)
[2018-02-17] MEDS: INSULIN ASPART 300 UNIT/3 ML PEN SUBQ SCH (20:55)
[2018-02-18] MEDS: SODIUM CHLORIDE FLUSH 0.9% 10 ML SYRINGE IVP SCH ×2 (00:04→10:32)
[2018-02-18 06:07] LABS: CHOLESTEROL 140 mg/dL; HDL CHOLESTEROL 35 mg/dL; LDL CHOLESTEROL,CALCULATED 72 mg/dL; LDL/HDL RATIO 2.1 (<4.4); VLDL CHOLESTEROL 33 mg/dL
[2018-02-18 06:36] LABS: HB2 TOTAL 14.6 g/dL; HEMOGLOBIN A1C 1.14 g/dL; HEMOGLOBIN A1C % 9.3 % (4.6-6.2)
[2018-02-18] MEDS: INSULIN GLARGINE 300 UNIT/3 ML PEN SUBQ SCH (07:01)
[2018-02-18 07:34] VITALS: BP 115/79
--- NOTE | 2018-02-18 08:03 | Discharge Plan ---
Discharge Plan Disposition: Home, Self Care Condition: Stable Prescriptions: Clopidogrel [Plavix] 75 mg PO DAILY #30 tablet Simvastatin 10 mg PO DAILY #30 tablet Diet: Diabetic Activity Restrictions: Activity as Tolerated Shower Restrictions: No Driving Restrictions: No Additional Instructions or Follow Up instructions: You were placed in observation in the hospital because of new right body numbness and tingling from your face to your leg. We know that you have a high risk of stroke from your previous health records and you already had a small stroke in the left brain in February 2017. The symptoms you feel are very similar to the ones you felt in February 2017. CT of the head shows the scar tissue from the old stroke. MRI of the head shows the same thing. The scar in in the lacunar area of your left brain. The blood supply to your brain in the angiograms of your head show that you have a small area of 50% or more blockage in a left brain artery. In order to make sure that blockage does not get any worse, you must have your diabetes under control with an A1c of less than 7%, always have your blood pressure controlled with a goal at 120/70, do not smoke, and do not use any type of recreational substances. Your A1c was 12% in February, and with this admission it is 9%. Goal is to be less than 7%. I have made a recommendation to go to diabetic education classes. Please contact them to set up a time for the next class session. Please see your primary care provider, Cesilia Burns, in the next 1-2 weeks. In order to reduce your risk, we did start you on Plavix once a day. You are to take Plavix and aspirin. Both of them are blood thinners that will help blood supply to your brain. In 3 weeks stop the aspirin and continue only the Plavix. We have also started you on a cholesterol drug. The cholesterol drug is not to treat high cholesterol but to help with healing inside the artery. This is very helpful in stroke and heart patients. I would continue the cholesterol pill indefinitely. Possibly the rest of your life. Your doctor and you had a long talk about lifestyle choices. Please try to choose better with regards to controlling your diabetes. A fasting blood sugar should be below 110. A before going to bed sugar should be less than 140. We also discussed her use of recreational substances, those must stop. You cannot smoke either. Follow-Up Care: [facility] - Diabetes Ed No Smoking: If you smoke, Please STOP! Call for help. Follow-up with: Cesilia Burns ARNP [Primary Care Provider] -
[2018-02-18] MEDS ORDERED: POLYETHYLENE GLYCOL 3350 17 GM PACKET PO SCH (09:00)
[2018-02-18] MEDS: INSULIN ASPART 300 UNIT/3 ML PEN SUBQ SCH (10:23)
--- NOTE | 2018-02-18 21:58 | DISCHARGE SUMMARY ---
Physician: Diann Henry MD DATE OF ADMISSION: 02/17/2018 DATE OF DISCHARGE: 02/18/2018 DISCHARGE DIAGNOSES 1. Paraesthesia of right side of body. 2. 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 3. 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 4. Essential hypertension. 5. Methamphetamine abuse. 6. Tobacco abuse. PRINCIPAL MEDICATIONS: 1. Vitamin C 1000 mg p.o. daily. 2. Berberine 500 mg capsule daily. 3. Vitamin D 5000 unit capsule daily. 4. Vitamin B complex daily. 5. Aspirin 325 mg daily. 6. Plavix 75 mg daily. 7. Insulin sliding scale before each meal as needed, NovoLog. 8. Lantus 20 units subcutaneously b.i.d. 9. Simvastatin 10 mg p.o. daily. PRINCIPAL PROCEDURES 1. Head CT with no acute intracranial abnormality. No evidence of mass, midline shift, or infarctio n. [place]-white differentiation is distinct. 2. Brain MRI when compared to brain MRI 03/04/2017 shows the same small volume encephalomalacia of t he left basal ganglia and a region of prior infarct. White matter changes same as 03/04/2017. No ar eas of restricted diffusion to suggest acute infarct. No abnormal areas of hemosiderin deposit. 3. MRA of brain and carotids show moderate 50% stenosis at the junction of the cavernous and supracl inoid right internal carotid artery similar to MR 03/04/2017. Left internal carotid again demonstrat es moderate 50% stenosis at the junction of the cavernous and supraclinoid left intracranial artery a s the same as before. The brain shows no large vessel occlusion. No aneurysms. HOSPITAL COURSE: The patient is a 47-year-old female who has diabetes, hypertension, is a 1/2 pack p er day smoker and also does daily methamphetamine abuse. She came in with symptoms of right body par esthesia in February 2017, was found to have a lacunar infarct. A1c at that time was 12%. She now presents with another 12-13 24-hour history of the same problem. Right body paresthesias sta rting in her face and getting denser as it goes down her body to her foot. No focal weakness. No mu scle weakness. No dysarthria. No dysphagia. She was seen in the emergency room and had only one hypertensive blood pressure reading. The rest we re all normotensive. She was afebrile. Urine tox screen is positive for methamphetamines. She had no focal deficits, but did have sensory loss on the right side of her body in comparison to the left side of her body. She was placed in observation. Insulin was tracked and her A1c shows her to be at 9%. While it is b anna than the 12% of last year, I explained to her that her goal needs to be less than 7%. The new MRI and MRA showed the same stroke as before with no new lesions and no new stenosis. The pa td was taught about the risk of stroke and vascular disease in patients who smoke and have diabete s and on top of that to methamphetamines. She may have had vasospasm which mimic her previous stroke and it was quick enough that she has had no further residual. She was strongly encouraged to stop s moking, get her A1c below 7% and told that she should stop doing methamphetamines daily. During her stay she did get nicotine patch. Other than the initial blood pressure which was high, the patient remained normotensive in the 120s t o 130s systolic. Overnight, the patient had no arrhythmias. No change in her status, and her dysesthesias were almost completely gone. She was felt stable enough for discharge. PHYSICAL EXAMINATION: VITAL SIGNS: Temperature was 36.6, pulse 77, blood pressure 115/79, respirations 16, and 97% on room air. GENERAL: She is a pale, well-nourished, well-developed white female who looks her stated age. NECK: Supple. No goiter or bruits. LUNGS: Clear to auscultation and percussion without any labored respiration and she does not have pr olonged exhalation phase. PMI is normally placed with a regular rate and rhythm. ABDOMEN: Soft, nontender, benign. No organomegaly. EXTREMITIES: Warm without clubbing, cyanosis or edema. She is asked to followup with her primary care provider, Cesilia ____[TIME: 06:47]. Again, asked to pl ease stop smoking. No more methamphetamines, and to get A1c below 7%. She was sent home on new medi cations of Plavix and statin. These were through consultation with telestroke [facility]. Sh e is to be on the Plavix and aspirin for 3 weeks, and then stop the aspirin and stay only on the Plav ix thereafter for her lifetime. Simvastatin was started for endothelial repair aid. She did have a fasting cholesterol done, which showed a triglyceride 163, cholesterol 140, LDL 72, HD L 35. TD: 02/18/2018 11:18
== END 2018-02-18 09:45 | disposition home or self-care (01) ==
LOC: ED 12:11 → MS2 14:16
PROVIDERS: ADMIT Specialist; ATTEND Specialist
DX: R20.2 Paresthesia of skin (principal); E11.51 Type 2 diabetes mellitus with diabetic peripheral angiopathy without gangrene; E11.65 Type 2 diabetes mellitus with hyperglycemia; E11.42 Type 2 diabetes mellitus with diabetic polyneuropathy; Z79.4 Long term (current) use of insulin; I10 Essential (primary) hypertension; F15.10 Other stimulant abuse, uncomplicated; F17.210 Nicotine dependence, cigarettes, uncomplicated; Z86.73 Personal history of transient ischemic attack (TIA), and cerebral infarction without residual deficits; I65.21 Occlusion and stenosis of right carotid artery
CPT/HCPCS: 36415; 70450; 70544; 70547; 70551; 80053; 80061; 80306; 81003; 83036; 83690; 84484; 85025; 85610; 93005; 99284; A9270; G0378; J1815; 81001; 83721; 87086; 99285

== ENCOUNTER 2019-01-24 07:00 | Outpatient (CLI) | payer MEDICAID | END 2019-01-24 23:59 | disposition home or self-care (01) | LOC: LAB.R 07:00 | PROVIDERS: ATTEND Family Medicine | DX: E11.65 Type 2 diabetes mellitus with hyperglycemia (principal); N39.0 Urinary tract infection, site not specified | CPT/HCPCS: 87077; 87086; 87181 ==

== ENCOUNTER 2020-08-12 08:00 | Outpatient (CLI) | payer MEDICAID ==
--- NOTE | 2020-08-12 18:59 | XRAY Report ---
PROCEDURE: Foot 3 View LT INDICATIONS: PAIN IN LEFT FOOT TECHNIQUE: 3 views of the foot were acquired. COMPARISON: None FINDINGS: Bones: No fractures or dislocations. No suspicious bony lesions. Soft tissues: No tibiotalar joint effusion. Achilles tendon appears normal. IMPRESSION: Unremarkable left foot radiographs Reviewed by: Arnulfo Maloney MD on 08/12/2020 5:57 PM AKDRAGAN Approved by: Arnulfo Maloney MD on 08/12/2020 5:57 PM AKDT Station ID: [id number]
== END 2020-08-12 23:59 | disposition home or self-care (01) ==
LOC: DI.S 08:00
PROVIDERS: ATTEND Physician Assistant
DX: M79.672 Pain in left foot (principal)

== ENCOUNTER 2021-07-01 08:17 | Outpatient (CLI) | payer MEDICAID ==
[2021-07-01 14:37] LABS: BASOPHILS % (AUTO) 0.3 %; EOSINOPHILS # (AUTO) 0.1 10^3/uL (0.0-0.7); EOSINOPHILS % (AUTO) 1.3 %; HCT - HEMATOCRIT 44.4 % (37.0-47.0); HGB - HEMOGLOBIN 14.5 g/dL (12.0-16.0); LYMPHOCYTES # (AUTO) 2.1 10^3/uL (1.5-3.5); MEAN CORPUSCULAR HEMOGLOBIN 28.4 pg (27.0-31.0); MEAN CORPUSCULAR HGB CONC 32.7 g/dL (32.0-36.0); MEAN CORPUSCULAR VOLUME 87.1 fL (81.0-99.0); MEAN PLATELET VOLUME 11.2 fL (7.9-10.8); MONOCYTES # (AUTO) 0.5 10^3/uL (0.0-1.0); MONOCYTES % (AUTO) 7.8 %; NEUTROPHILS # (AUTO) 3.7 10^3/uL (1.5-6.6); NEUTROPHILS % (AUTO) 57.4 %; PLT - PLATELET COUNT 258 10^3/uL (130-450); RED CELL DISTRIBUTION WIDTH 12.9 % (12.0-15.0); WHITE BLOOD COUNT 6.4 x10^3/uL (4.8-10.8)
[2021-07-01 14:59] LABS: ALBUMIN 3.8 g/dL (3.2-5.5); ALKALINE PHOSPHATASE 93 IU/L (42-121); ALT ALANINE AMINOTRANSFERASE 24 IU/L (10-60); AST ASPARTATE AMINOTRANSFERASE 23 IU/L (10-42); BILIRUBIN,TOTAL 0.9 mg/dL (0.2-1.0); BUN - BLOOD UREA NITROGEN 14 mg/dL (6-20); CALCIUM 8.9 mg/dL (8.5-10.3); CARBON DIOXIDE - CO2 26 mmol/L (21-32); CHLORIDE 102 mmol/L (101-111); CHOL/HDL RATIO 2.9 (<4.4); CHOLESTEROL 132 mg/dL; CREATININE 0.7 mg/dL (0.4-1.0); GFR - MDRD 88 (>89); GLUCOSE 228 mg/dL (70-100); HDL CHOLESTEROL 46 mg/dL; LDL CHOLESTEROL,CALCULATED 71 mg/dL; LDL/HDL RATIO 1.5 (<4.4); SODIUM 136 mmol/L (135-145); TOTAL PROTEIN 7.6 g/dL (6.7-8.2); TRIGLYCERIDES 76 mg/dL; VLDL CHOLESTEROL 15 mg/dL
[2021-07-01 15:26] LABS: THYROID STIMULATING HORMONE 1.33 uIU/mL (0.34-5.60)
[2021-07-01 20:38] LABS: CREATININE,URINE 219.1 mg/dL; MICROALBUM/CREATININE RATIO,UR 5.5 ug/mg (<30.0); MICROALBUMIN,URINE 1.2 mg/dL (0-300.0)
[2021-07-01 21:36] LABS: ESTIMATED AVERAGE GLUCOSE 278 mg/dL (70-100); HEMOGLOBIN A1c% 11.3 % (4.27-6.07)
== END 2021-07-01 08:18 | disposition home or self-care (01) ==
LOC: LAB.S 08:17
PROVIDERS: ATTEND Registered Nurse
DX: I10 Essential (primary) hypertension (principal); E11.8 Type 2 diabetes mellitus with unspecified complications; E78.1 Pure hyperglyceridemia; F17.200 Nicotine dependence, unspecified, uncomplicated
CPT/HCPCS: 36415; 80053; 80061; 82043; 82570; 83036; 83721; 84443; 85025

== ENCOUNTER 2023-03-11 07:24 | Outpatient (CLI) | payer MEDICAID ==
[2023-03-11 14:37] LABS: BASOPHILS % (AUTO) 0.5 %; EOSINOPHILS # (AUTO) 0.1 10^3/uL (0.0-0.7); EOSINOPHILS % (AUTO) 1.3 %; HCT - HEMATOCRIT 44.4 % (37.0-47.0); HGB - HEMOGLOBIN 13.8 g/dL (12.0-16.0); LYMPHOCYTES # (AUTO) 2.2 10^3/uL (1.5-3.5); LYMPHOCYTES % (AUTO) 28.6 %; MEAN CORPUSCULAR HEMOGLOBIN 27.3 pg (27.0-31.0); MEAN CORPUSCULAR HGB CONC 31.1 g/dL (32.0-36.0); MEAN CORPUSCULAR VOLUME 87.7 fL (81.0-99.0); MEAN PLATELET VOLUME 10.7 fL (7.9-10.8); MONOCYTES # (AUTO) 0.6 10^3/uL (0.0-1.0); MONOCYTES % (AUTO) 7.4 %; NEUTROPHILS # (AUTO) 4.8 10^3/uL (1.5-6.6); NEUTROPHILS % (AUTO) 61.9 %; PLT - PLATELET COUNT 280 10^3/uL (130-450); RED BLOOD COUNT 5.06 10^6/uL (4.20-5.40); RED CELL DISTRIBUTION WIDTH 13.6 % (12.0-15.0); WHITE BLOOD COUNT 7.8 x10^3/uL (4.8-10.8)
[2023-03-11 15:38] LABS: ALBUMIN 3.9 g/dL (3.2-5.5); ALBUMIN/GLOBULIN RATIO 1.1 (1.0-2.2); BILIRUBIN,TOTAL 0.5 mg/dL (0.2-1.0); CALCIUM 9.3 mg/dL (8.5-10.3); CREATININE 0.8 mg/dL (0.6-1.3); POTASSIUM 4.2 mmol/L (3.5-4.5); TOTAL PROTEIN 7.3 g/dL (6.4-8.9)
[2023-03-11 20:30] LABS: ESTIMATED AVERAGE GLUCOSE 220 mg/dL (70-100); HEMOGLOBIN A1c% 9.3 % (4.27-6.07)
== END 2023-03-11 07:25 | disposition home or self-care (01) ==
LOC: LAB.S 07:24
PROVIDERS: ATTEND Registered Nurse
DX: I10 Essential (primary) hypertension (principal); E11.8 Type 2 diabetes mellitus with unspecified complications
CPT/HCPCS: 36415; 80053; 83036; 85025

== ENCOUNTER 2023-09-27 07:44 | Outpatient (CLI) | payer MEDICAID ==
[2023-09-27 14:47] LABS: BASOPHILS % (AUTO) 0.3 %; EOSINOPHILS # (AUTO) 0.1 10^3/uL (0.0-0.7); EOSINOPHILS % (AUTO) 1.7 %; HCT - HEMATOCRIT 44.9 % (37.0-47.0); HGB - HEMOGLOBIN 14.1 g/dL (12.0-16.0); LYMPHOCYTES # (AUTO) 2.2 10^3/uL (1.5-3.5); LYMPHOCYTES % (AUTO) 33.5 %; MEAN CORPUSCULAR HEMOGLOBIN 27.6 pg (27.0-31.0); MEAN CORPUSCULAR HGB CONC 31.4 g/dL (32.0-36.0); MEAN PLATELET VOLUME 10.7 fL (7.9-10.8); MONOCYTES # (AUTO) 0.5 10^3/uL (0.0-1.0); MONOCYTES % (AUTO) 7.4 %; NEUTROPHILS # (AUTO) 3.7 10^3/uL (1.5-6.6); NEUTROPHILS % (AUTO) 56.8 %; PLT - PLATELET COUNT 268 10^3/uL (130-450); WHITE BLOOD COUNT 6.5 x10^3/uL (4.8-10.8)
[2023-09-27 14:58] LABS: ESTIMATED AVERAGE GLUCOSE 246 mg/dL (70-100); HEMOGLOBIN A1c% 10.2 % (4.27-6.07)
[2023-09-27 15:27] LABS: CHOL/HDL RATIO 2.3 (<4.4); CHOLESTEROL 98 mg/dL; HDL CHOLESTEROL 43 mg/dL; LDL CHOLESTEROL,CALCULATED 35 mg/dL; LDL/HDL RATIO 0.8 (<4.4); TRIGLYCERIDES 99 mg/dL; VLDL CHOLESTEROL 20 mg/dL
[2023-09-27 15:38] LABS: THYROID STIMULATING HORMONE 1.37 uIU/mL (0.34-5.60)
[2023-09-27 15:41] LABS: CREATININE,URINE 91.8 mg/dL
[2023-09-27 16:07] LABS: ALBUMIN 4.1 g/dL (3.2-5.5); ALBUMIN/GLOBULIN RATIO 1.2 (1.0-2.2); ALKALINE PHOSPHATASE 117 IU/L (42-121); ALT ALANINE AMINOTRANSFERASE 23 IU/L (10-60); AST ASPARTATE AMINOTRANSFERASE 22 IU/L (10-42); BILIRUBIN,TOTAL 0.6 mg/dL (0.2-1.0); BUN - BLOOD UREA NITROGEN 19 mg/dL (6-20); CALCIUM 9.5 mg/dL (8.5-10.3); CARBON DIOXIDE - CO2 31 mmol/L (21-32); CHLORIDE 103 mmol/L (101-111); CREATININE 0.8 mg/dL (0.6-1.3); GFR - MDRD 74 (>89); GLUCOSE 279 mg/dL (74-104); MICROALBUMIN,URINE < 0.7 mg/dL; POTASSIUM 4.2 mmol/L (3.5-4.5); SODIUM 136 mmol/L (135-145); TOTAL PROTEIN 7.5 g/dL (6.4-8.9)
== END 2023-09-27 07:45 | disposition home or self-care (01) ==
LOC: LAB.S 07:44
PROVIDERS: ATTEND Registered Nurse
DX: E11.8 Type 2 diabetes mellitus with unspecified complications (principal); Z79.899 Other long term (current) drug therapy; E78.1 Pure hyperglyceridemia
CPT/HCPCS: 36415; 80053; 80061; 82043; 82570; 83036; 83721; 84443; 85025